=== PATIENT | male | born 1945 | race Caucasian/White ===

== ENCOUNTER 2020-09-13 11:09 | Outpatient (RCR) | payer MEDICARE, SELFPAY ==
[2020-09-13] MEDS: COVID-19 VACC, MRNA(PFIZER)/PF 30 MCG/0.3 ML SYRINGE IM (11:07)
[2020-10-04] MEDS: COVID-19 VACC, MRNA(PFIZER)/PF 30 MCG/0.3 ML SYRINGE IM (10:59)
== END 2020-12-13 23:59 ==
LOC: IMMUN 11:09
PROVIDERS: Visit Provider Family Medicine
DX: Z23 Encounter for immunization (principal)
CPT/HCPCS: 0001A; 0002A; 91300

== ENCOUNTER 2021-04-10 13:59 | Emergency (ER) | payer OTHER, MEDICARE, SELFPAY ==
[2021-04-10 13:59] VITALS: BP 151/94; PULSE 82; RESP 19; TEMP 37; O2SAT 98; BMI 27.3
--- NOTE | 2021-04-10 14:18 | EKG12_ITS ---
Test Reason : CP Blood Pressure : / mmHG Vent. Rate : 082 BPM Atrial Rate : 082 BPM P-R Int : 116 ms QRS Dur : 106 ms QT Int : 394 ms P-R-T Axes : 046 -17 012 degrees QTc Int : 460 ms Normal sinus rhythm with sinus arrhythmia Inferior infarct , age undetermined , cannot be excluded Abnormal ECG Confirmed by YEYO SALAS, NADIA ([id number]), technical writer and editor CHRISTINE WREN ([id number]) on 04/11/2021 8:36:36 AM Referred By: LIONEL Confirmed By:NADIA ORONA MD
--- NOTE | 2021-04-10 14:30 | RAD_ITS ---
STUDY: X-RAY CHEST REASON FOR EXAM: Male, 75 years old. CP TECHNIQUE: AP COMPARISON: None. FINDINGS: The lungs are clear and expanded. There is no demonstrated pleural abnormality. Normal size heart. Normal mediastinum and tristan. Normal visualized pulmonary arteries. Normal visualized aortic arch and descending thoracic aorta. Normal visualized thoracic spine. Normal visualized ribs, clavicles, and shoulders. There is no demonstrated abnormality of the visualized soft tissue structures of the upper abdomen. RAD/Chest 1 View IMPRESSION: Nonacute portable x-ray examination of the chest. Electronically Signed: Adrian Jain MD ([place]) at 14:48 EDT , Service support ,
[2021-04-10 16:33] VITALS: BP 166/97; PULSE 85; RESP 17
[2021-04-10 16:43] LABS: Absolute Lymphocyte Count 2.25 X10^3/uL (0.83-4.51); Absolute Neutrophil Count 4.7 X10^3/uL (2.0-7.7); Basophil# 0.03 X10^3/uL; Basophil% 0.4 % (0-1); Eosinophil# 0.16 X10^3/uL; Eosinophils% 2.1 % (0-5); Hematocrit 45.4 % (40-54); Hemoglobin 15.1 g/dL (13.0-16.5); Lymphocyte # 2.25 X10^3/ul (0.83-4.51); Mean Corp Hgb Conc 33.3 g/dL (32-36); Mean Corpuscular Hgb 29.3 pg (27.0-32.0); Mean Corpuscular Volume 88.2 fL (80-94); Mean Platelet Vol. 11.6 fl (6.2-12.0); Monocyte# 0.61 X10^3/uL; Monocyte% 7.9 % (0-10); NRBC Flagged by Analyzer 0 % (0-5); Neutrophil % 60.3 % (47-70); Platelet Count 248 K/mm3 (150-450); RBC Distribution Width SD 45.1 fl (35.1-43.9); Red Blood Count 5.15 M/mm3 (4.6-6.2); White Blood Count 7.8 K/mm3 (4.4-11.0)
[2021-04-10 16:56] LABS: Anion Gap 7 (5-15); BUN 18 mg/dL (7-18); BUN/Creat Ratio 19.6 RATIO (10-20); Calcium,Total 9.1 mg/dL (8.5-10.1); Chloride 111 mmol/L (98-107); Creatinine, Serum 0.92 mg/dL (0.70-1.30); EST Glomerular Filtration Rate 86 mL/min (>60); Est Glom Filt Rate - Afr Amer 103 mL/min (>60); Estimated Creatinine Clearance 65.86 ml/min; Glucose 90 mg/dL (74-106); Potassium 3.9 mmol/L (3.5-5.1); Sodium Level 142 mmol/L (136-145); Troponin-I HS 9 pg/mL (3.0-78.0)
[2021-04-10 17:06] VITALS: BP 147/89; PULSE 86; RESP 14
[2021-04-10 18:32] VITALS: BP 136/82; PULSE 92; RESP 15; O2SAT 97
[2021-04-10 18:49] LABS: Troponin-I HS 10 pg/mL (3.0-78.0)
[2021-04-10 19:00] VITALS: BP 149/104; PULSE 85; RESP 16; O2SAT 97
--- NOTE | 2021-04-10 19:14 | ED.VIS.CHEST ---
HPI History of Present Illness Chief Complaint: Chest Pain Informant: patient Narrative Narrative: Presenting with transient chest pain while attending dentist office with his . States standing noted substernal sharp pain lasting 30 seconds. Was lightheaded. No syncopal episodes. EMS was contacted at the facility, he is status post aspirin at the office. Denies any cardiac history. History of hypertension. Stress test years ago. No history of heart caths. No PE risk factors. [facility] Similar Symptoms: No CVD Risk Factors: Positive for Hypertension PFSH PFSH Medical History COPD (chronic obstructive pulmonary disease) Former smoker Home Medications amlodipine [Norvasc] 5 mg PO DAILY 04/10/21 [History Last Taken Unknown] Allergy/AdvReac Type Severity Reaction Status Date / Time erythromycin base Allergy Other Verified 04/10/21 14:02 Social History Smoking Status: Former smoker ROS ROS ED Constitutional Constitutional ED: Denies chills, fever(s) or sweats Eyes Eyes: Denies change in vision ENT ENT ED: Denies dysphagia or sore throat Cardiovascular Cardiovascular: Reports chest pain; Denies leg edema, palpitations or racing heartbeat Respiratory/Chest Respiratory/Chest: Denies cough, dyspnea or dyspnea on exertion Gastrointestinal Gastrointestinal: Denies abdominal pain, diarrhea, nausea or vomiting Genitourinary Genitourinary ED: Denies dysuria, hematuria or urinary frequency Musculoskeletal Musculoskeletal: Denies back pain, extremity pain or neck pain Integumentary Denies rash or wounds Neurologic Neurologic: Denies headache(s), paresthesias or weakness EXAM Physical Exam Const Vital Signs: 04/10/21 13:59 04/10/21 16:33 04/10/21 17:06 Temperature 98.6 F Temperature Source Temporal Pulse Rate 82 85 86 Respiratory Rate 19 H 17 14 Blood Pressure 151/94 H 166/97 H 147/89 H Blood Pressure Mean 113 120 108 Pulse Ox 98 Oxygen Delivery Method Room Air 04/10/21 18:32 04/10/21 19:00 04/10/21 19:25 Temperature Temperature Source Pulse Rate 92 85 85 Respiratory Rate 15 16 16 Blood Pressure 136/82 H 149/104 H 149/90 H Blood Pressure Mean 100 119 Pulse Ox 97 97 97 Oxygen Delivery Method Room Air Room Air Positive well nourished and well developed General Appearance ED: well developed and NAD HEENT Reports moist mucous membranes normocephalic and atraumatic Eyes PERRL, EOMs intact bilaterally and conjunctivae normal General Eye ED: Yes normal appearance of both eyes Neck no lymphadenopathy and supple General: Negative for tenderness Chest Wall Chest: Negative for tenderness Resp normal respiratory effort and normal air movement Effort and Inspection: symmetric chest movement; Negative for respiratory distress Cardio regular rate, regular rhythm and no murmurs Peripheral Pulses: pulses 2+ throughout GI normal to inspection, nondistended, normoactive bowel sounds and non-tender Palpation: Negative for guarding or rebound tenderness present Back/Spine no CVA tenderness and no thoracic nor lumbar tenderness Extremity normal to inspection General Extremety ED: Negative for edema or tenderness General Extremity: Negative for edema Neuro oriented x3 and no sensory deficits noted Sensorium / Orientation: awake and alert Skin no rashes or lesions noted and no wounds Heart Score History: Slightly/Non-Suspicious ECG: Normal Age: >/= 65 years Risk Factors: 1 or 2 Risk Factors Troponin: </= Normal Limit Score: 3 MDM MDM MDM Narrative Medical decision making narrative: Patient currently symptom-free EKG nonspecific T wave inversion in leads III. Cardiac work-up high since her troponin negative x2. Chest x-ray negative. Patient ambulated in department with no return of symptoms. He will follow-up for further testing as an outpatient. Return precautions discussed. All questions were answered. Lab Data Attestation: I reviewed the patient's lab results. Labs: Laboratory Results - last 24 hr 04/10/21 04/10/21 04/10/21 16:30 16:30 18:24 WBC 7.8 RBC 5.15 Hgb 15.1 Hct 45.4 MCV 88.2 MCH 29.3 MCHC 33.3 RDW Std Deviation 45.1 H RDW Coeff of Ishmael 14.0 Plt Count 248 MPV 11.6 Immature Gran % (Auto) 0.300 Neut % (Auto) 60.3 Lymph % (Auto) 29.0 [place] % (Auto) 7.9 Eos % (Auto) 2.1 Baso % (Auto) 0.4 Absolute Neuts (auto) 4.7 Absolute Lymphs (auto) 2.25 Nucleated RBC % 0 Sodium 142 Potassium 3.9 Chloride 111 H Carbon Dioxide 24.0 Anion Gap 7 BUN 18 Creatinine 0.92 Estim Creat Clear Calc 65.86 Est GFR (MDRD) Af Amer 103 Est GFR (MDRD) Non-Af 86 BUN/Creatinine Ratio 19.6 Glucose 90 Calcium 9.1 Troponin I High Sens 9 10 Radiography Chest X-Ray - ED: 1 View, Read by ED Physician and Read by Radiologist Diagnostic Testing: Radiology Impression Chest X-Ray 04/10/21 14:30 IMPRESSION: Nonacute portable x-ray examination of the chest. Electronically Signed: Adrian Jain MD ([place]) at 14:48 EDT , Service support , Discharge Plan Triage Chief Complaint: Chest Pain ED Provider: Blaine López Dx/Rx/DC Orders Clinical Impression: Chest pain Instructions: ED Chest Pain, Uncertain Cause Prescriptions: No Action amlodipine [Norvasc] 5 mg Tablet 5 mg PO DAILY RF: 0 [facility] [facility] - 3-5 Days Disposition Disposition: Home, Self Care Discharge Date/Time: 04/10/21 19:25
[2021-04-10 19:25] VITALS: BP 149/90; PULSE 85; RESP 16; O2SAT 97
== END 2021-04-10 19:25 | disposition home or self-care (01) ==
PROVIDERS: Emergency Provider Emergency Medicine
DX: R07.9 Chest pain, unspecified (principal); R42 Dizziness and giddiness; I10 Essential (primary) hypertension; J44.9 Chronic obstructive pulmonary disease, unspecified; Z87.891 Personal history of nicotine dependence
CPT/HCPCS: 71045; 80048; 84484; 85025; 93005; 99285; A4216

== ENCOUNTER → 2021-12-11 | Outpatient (CLI) | payer MEDICARE, SELFPAY ==
[2021-12-11 11:16] LABS: Hematocrit 44.1 % (40-54); Hemoglobin 14.8 g/dL (13.0-16.5); Mean Corp Hgb Conc 33.6 g/dL (32-36); Mean Corpuscular Hgb 28.6 pg (27.0-32.0); Mean Corpuscular Volume 85.1 fL (80-94); Mean Platelet Vol. 12.1 fl (6.2-12.0); Platelet Count 192 K/mm3 (150-450); RBC Distribution Width CV 13.4 % (11.6-14.6); RBC Distribution Width SD 41.8 fl (35.1-43.9); Red Blood Count 5.18 M/mm3 (4.6-6.2); White Blood Count 6.6 K/mm3 (4.4-11.0)
[2021-12-11 11:44] LABS: Hemoglobin A1c 5.5 % (3.8-5.6)
[2021-12-11 11:45] LABS: Vitamin B12 303 pg/mL (211-911); Vitamin D,25 Hydroxy 58.4 ng/mL
[2021-12-11 11:56] LABS: Homocysteine 10.1 umol/L (3.2-10.7)
[2021-12-11 13:07] LABS: ALB/GLOB Ratio 1.2 RATIO (0.9-2.4); AST(SGOT) 17 U/L (15-37); Alanine Aminotransfer ALT/SGPT 25 U/L (16-61); Albumin, Serum 4.1 g/dL (3.2-5.0); Alkaline Phosphatase 63 U/L (45-117); Anion Gap 5 (5-15); BUN 17 mg/dL (7-18); BUN/Creat Ratio 17.7 RATIO (10-20); Calcium,Total 9.2 mg/dL (8.5-10.1); Chloride 111 mmol/L (98-107); Cholesterol 241 mg/dL (200); Creatinine, Serum 0.96 mg/dL (0.70-1.30); EST Glomerular Filtration Rate 81 mL/min (>60); Est Glom Filt Rate - Afr Amer 98 mL/min (>60); Estradiol 16.9 pg/mL; Free T3 3.1 pg/mL (2.18-3.98); Globulin 3.4 g/dL (2.2-4.2); Glucose 96 mg/dL (74-106); High Density Lipoprotein 49 mg/dL; PSA,Total - Annual Screen 5.06 ng/mL (0.00-4.00); Potassium 3.7 mmol/L (3.5-5.1); Protein, Total 7.5 g/dL (6.4-8.2); Sodium Level 140 mmol/L (136-145); T4 Total, Thyroxin 11.2 ug/dL (4.5-12.1); Triglycerides 111 mg/dL; Very Low Density Lipoprotein 22 mg/dL (5-40)
[2021-12-14 11:08] LABS: Testosterone, % Free 2.76 % (1.50-4.20); Testosterone, Free 11.37 ng/dL (5.00-21.00)
[2021-12-14 12:26] LABS: DHEA Sulfate 50.5 ug/dL (20.8-226.4); Testosterone, Total 412 ng/dL (264-916)
== END | disposition home or self-care (01) ==
PROVIDERS: PCP Internal Medicine
DX: E55.9 Vitamin D deficiency, unspecified (principal); H35.3212 Exudative age-related macular degeneration, right eye, with inactive choroidal neovascularization; E72.11 Homocystinuria; D51.9 Vitamin B12 deficiency anemia, unspecified; H35.3111 Nonexudative age-related macular degeneration, right eye, early dry stage; H04.123 Dry eye syndrome of bilateral lacrimal glands; N40.0 Benign prostatic hyperplasia without lower urinary tract symptoms; R53.83 Other fatigue; M75.50 Bursitis of unspecified shoulder; R63.5 Abnormal weight gain; Z13.29 Encounter for screening for other suspected endocrine disorder; Z12.5 Encounter for screening for malignant neoplasm of prostate
CPT/HCPCS: 36415; 80053; 80061; 82306; 82607; 82627; 82670; 83036; 83090; 84153; 84402; 84403; 84436; 84443; 84481; 85027; 86141; 82626; G0103

== ENCOUNTER → 2022-03-14 | Outpatient (CLI) | payer MEDICARE, SELFPAY ==
--- NOTE | 2022-03-14 10:38 | RAD_ITS ---
STUDY: X-RAY - CERVICAL SPINE REASON FOR EXAM: Male, 76 years old. PAIN TECHNIQUE: 5 view(s) of the cervical spine were obtained. COMPARISON: None FINDINGS: Normal anterior atlantoaxial articulation. Normal odontoid process. Normal cervical lordosis. Normal vertebral bodies and endplates. There is multi-level degenerative disc disease with multilevel disc space narrowing. There is multi-level osseous foraminal stenosis. The soft tissue structures are unremarkable. RAD/Cerv Spine 4 or 5 Views IMPRESSION: Multilevel degenerative changes, no acute fracture or suspicious osseous lesion Electronically Signed: Jose L Curtis MD at 13:32 EDT ,
--- NOTE | 2022-03-14 10:38 | RAD_ITS ---
STUDY: X-RAY - RIGHT KNEE REASON FOR EXAM: Male, 76 years old. Pain and stiffness TECHNIQUE: 4 view(s) of the knee. COMPARISON: None. FINDINGS: Normal visualized distal femur. Normal visualized proximal tibia and fibula. Normal proximal tibiofibular articulation. There is severe degenerative arthrosis of the medial femorotibial compartment with severe joint space narrowing. There is mild degenerative arthrosis of the lateral femorotibial compartment. There is moderate degenerative arthrosis of the patellofemoral articulation. No joint effusion, there are degenerative spurs and chondrocalcinosis. RAD/Knee 4 or More Views IMPRESSION: Degenerative arthrosis. Electronically Signed: Jose L Curtis MD at 13:30 EDT ,
--- NOTE | 2022-03-14 10:38 | RAD_ITS ---
STUDY: X-RAY - LUMBAR SPINE REASON FOR EXAM: Male, 76 years old. PAIN TECHNIQUE: 4 view(s) of the lumbar spine were obtained. COMPARISON: None FINDINGS: Normal lumbar lordosis. There is no substantial scoliosis. There is a normal alignment of the vertebrae. There is multilevel endplate spondylosis of the lumbar vertebrae. There is multi-level degenerative disc disease with multi-level disc space narrowing, most pronounced at L5/S1. There is no demonstrated fracture. There is atherosclerotic calcification of the abdominal aorta without a demonstrated aneurysm. RAD/L/S Spine Min 4 Views IMPRESSION: Degenerative changes of the spine, as detailed above. Electronically Signed: Jose L Curtis MD at 13:31 EDT ,
== END | disposition home or self-care (01) ==
LOC: RAD 10:31
PROVIDERS: PCP Internal Medicine
DX: M17.11 Unilateral primary osteoarthritis, right knee (principal); M51.36 Other intervertebral disc degeneration, lumbar region; M47.816 Spondylosis without myelopathy or radiculopathy, lumbar region; M47.812 Spondylosis without myelopathy or radiculopathy, cervical region; M50.30 Other cervical disc degeneration, unspecified cervical region
CPT/HCPCS: 72050; 72110; 73564; 73565

== ENCOUNTER 2022-04-03 08:16 | Day surgery (SDC) | payer OTHER, SELFPAY ==
--- NOTE | 2022-04-03 08:22 | HP.PCM_ITS ---
History and Physical Date of Admission: 04/03/22 Intake Visit Reasons:?COLONOSCOPY AND EGD FOR BLOATING AND REFLUX Chief Complaint: colonoscopy and EGD Em Physician Required: No Is patient in pain?: No Allergies erythromycin base Allergy (Verified 03/05/22 14:31) Other Medications amlodipine 5 mg tablet (Norvasc) 7.5 mg PO DAILY 10/31/21 [History Confirmed 03/05/22] benzonatate 100 mg capsule 100 mg PO BID PRN 10/31/21 [History Confirmed 03/05/22] budesonide-formoterol HFA 160 mcg-4.5 mcg/actuation aerosol inhaler (Symbicort) 2 puff inhalation BID 10/31/21 [History Confirmed 03/05/22] cholecalciferol (vitamin D3) 50 mcg (2,000 unit) capsule 50 mcg PO DAILY 10/31/21 [History Confirmed 03/05/22] ipratropium 20 mcg-albuterol 100 mcg/actuation mist for inhalation (Combivent Respimat) 1 puff inhalation Q6H 10/31/21 [History Confirmed 03/05/22] loratadine 10 mg tablet 10 mg PO DAILY 10/31/21 [History Confirmed 03/05/22] magnesium 200 mg tablet 400 mg PO DAILY 10/31/21 [History Confirmed 03/05/22] omega-3 fatty acids-fish oil 340 mg-1,000 mg capsule (Fish Oil) 1 cap PO DAILY 10/31/21 [History Confirmed 03/05/22] omeprazole 20 mg capsule,delayed release 20 mg PO BID 10/31/21 [History Confirmed 03/05/22] tamsulosin 0.4 mg capsule 0.4 mg PO DAILY 10/31/21 [History Confirmed 03/05/22] vit A 12,500 unit-zinc 12.5 hr-qvfhoj-hbcpi-bilberry-herb #261 capsule (Lipot[employer] Support) cap PO 10/31/21 [History Confirmed 03/05/22] Carpal Tunnel Splint #1 ea 01/31/22 [Rx Confirmed 03/05/22] PFSH Medical History?(Updated 03/05/22 @ 15:[address] Lavon Edmonds MD) COPD (chronic obstructive pulmonary disease) Former smoker Kidney stones Vision problem Surgical History?(Updated 03/05/22 @ 14:29 by Shona Rosado) S/P hernia repair Status post right knee replacement Family History? Grandfather CVA (cerebral vascular accident)Father CVA (cerebral vascular accident)Mother AnemiaOther Heart disease Social History? Smoking Status:? Former smoker HPI HPI HPI: CARYL CURIEL, is a 76 M who presents to the office today for surgical consultation regarding abdominal discomfort and bloating.? The patient is referred by the [place] [facility] for consideration of a combined upper and lower endoscopy and a written copy my surgical consult recommendations will retu rn to them.? He has not had any anemia identified and his renal function is normal. The patient is complaining of bloating epigastric pain.? He provides a history where 12 years ago he says in short succession he had 3 colonoscopies.? He claims at the initial visit he had several polyps identified and then in short order had a repeat scope with further polyps removed and then finally a third scope were no additional polyps were identified.? He was scheduled to return several years later and took the bowel prep had nausea and vomiting and had to cancel the colonoscopy and never rescheduled at that time.? His just had a colonoscopy done locally using a single day MiraLAX prep and had good results with no nausea or vomiting.? This is provided the patient with some encourage that he could take the same prep for his colonoscopy. The patient does have COPD related to cigarette use but he has not smoked cigarettes for 25 years.? He is post to use a couple inhalers and does have more on a as needed basis. He notes some left groin discomfort.? He has had a previous left inguinal herniorrhaphy.? He does not notice a mass or bulge. 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 He has not had any unexpected weight loss.? No bright red blood per rectum or melena ROS General General: Yes weight change and fatigue; No appetite, colon cancer, breast cancer or weakness HEENT HEENT: No difficulty swallowing, eye injury, eye surgery, swollen glands or hoarseness Endo Endocrine: No thyroid disease, diabetes mellitus, thyroid cancer, Hair loss, heat intolerance or cold intolerance Skin Skin: No rash or changing moles Breast Breast: No left breast lump, right breast lump, nipple discharge, breast pain, abnormal mammogram, abnormal US or breast enlargement Musc Musculoskeletal: Yes back problems and arthritis; No rheumatoid arthritis, gout or joint pain Cardio Cardiovascular: Yes high blood pressure; No murmur, pacemaker, heart disease, atrial fibrillation, heart attack, heart stent, palpitations, shortness of breat with exertion or chest pain Psych Psychiatric: Yes depression and anxiety; No hearing voices Resp Respiratory: Yes shortness of breath, No sleep apnea, No cough, Yes COPD, No asthma, No emphysema and No wheezing Gastro Gastrointestinal: Yes abdominal pain, No nausea or vomiting, Yes diarrhea, No constipation, No blood in stool, Yes acid reflux, No hemorrhoids, No ulcers, No gallbladder problem and No black,tarry stools Ravin Hematologic: No blood thinners, No blood disorders, No bleeding, No anemia and No blood clots Neuro Neurologic: No system reviewed and no additional complaints, except as documented, No as per HPI, No abnormal gait, No abnormal hearing, No abnormal movements, No abnormal speech, No behavioral changes, No burning sensations, No confusion, No convulsions, No disequilibrium, No dizziness, No localized weakness, No frequent falls, No headache(s), No lack of coordination, No loss of vision, No memory loss, No numbness, No other visual disturbances, No radicular pain, No restless legs, No sensory deficit, No syncope, No tingling, No tremor(s), No weakness and No other Exam Const General: cooperative and no acute distress Nutritional Appearance: average body habitus [facility] Head: normal to inspection Neck Neck: normal visual inspection Chest Other: Increased anterior posterior diameter Resp Other: Slightly diminished respiratory excursion.? Clear bilaterally Cardio Other: Mildly tachycardic, GI Inspection: normal to inspection Palpation: soft and no hepatosplenomegaly Other: Well-healed oblique incision left groin, solid and intact Neuro General: patient alert, patient awake and patient oriented x3 Extrem General: no calf tenderness Psych Appearance: grossly normal Assessment and Plan Assessment and Plan (1) Epigastric abdominal pain: ?Status:?Acute (2) Personal history of colonic polyps: ?Status:?Acute Plan I recommended the patient a combined esophagogastroduodenoscopy with possible biopsy and colonoscopy with possible biopsy or polypectomy as indicated.? He is aware of the technique, benefit, risk, alternatives.? We will try to use the same bowel prep which was successful for his which was a 1 day MiraLAX prep.? Based upon the patient's history I am anticipating likely identification of recurrent colon polyps.? We would utilize monitored anesthesia care.? He has had an opportunity to ask and have questions answered.? We will schedule proc edure at his discretion. Copy: [facility] Lavon Edmonds M.D., F.A.C.S I have re-examined the patient. There are no clinical changes since date of exam. Lavon Edmonds M.D., F.A.C.S.
[2022-04-03] MEDS: Lactated Ringers 1,000 ML 15 ML IV (08:30)
[2022-04-03 08:45] VITALS: BP 144/87; PULSE 105; RESP 16; TEMP 37.1; O2SAT 95; BMI 27.2
--- NOTE | 2022-04-03 09:45 | IMM_PTH ---
PATIENT: CARYL CURIEL LOC: [facility] U#:[id number] AGE/SX: 76/M ROOM: RE04/03/[address]: Dr. Lavon Edmonds MD : 1945 BED: DIS: 04/03/2022 SPEC #: [id number] RECD: 04/03/22 13:34 STATUS: JOAQUIN REQ #: [id number] INESSA: 04/03/22 09:[address]: Lavon Edmonds DEPT: IMMUNOHISTOCHEMISTRY RECD BY: Candice Butt ENTERED: 04/03/22 13:35 SP TYPE: IMMUNO OTHR DR: Dr. Kaur Suh MD [facility] Tissues: A - Stomach, NOS Procedures: H Pylori (initial) PHYSICIAN & INSTITUTION [place] [id number] SPECIMEN INFORMATION: Tissue Source: A ? Antrum biopsy Clinical Info: Epigastric abdominal pain, history of colonic polyps Specimen Number: [id number] CPT code: 93714 METHODOLOGY: Deparaffinized sections of prefer/formalin-fixed tissue or PAP/DQ stained slides are incubated with monoclonal/polyclonal antibodies/oligonucleotide probes. Localization is made via biotin free immunoperoxidase method. Appropriate controls are performed and reacted as expected. Results on target cell population are indicated in the following table: RESULTS: ANTIBODY / CLONE RESULT Block A H Pylori (polyclonal) negative These tests were developed and their performance characteristics determined by [facility]. They may not have been cleared or approved by the U.S. Food and Drug Administration. The FDA has determined that such clearance or approval is not necessary. The above immunohistochemical/dualISH markers are ordered and reviewed by the Pathologist. INTERPRETATION: A. Antrum, biopsy: Negative for Helicobacter pylori organisms. AM:diaz 04/04/2022
--- NOTE | 2022-04-03 09:45 | EGD_PTH ---
PATIENT: CARYL CURIEL LOC: [facility] U#:[id number] AGE/SX: 76/M ROOM: RE04/03/[address]: Dr. Lavon Edmonds MD : 1945 BED: DIS: 04/03/2022 SPEC #: [id number] RECD: 04/03/22 11:50 STATUS: JOAQUIN ALVARADO #: [id number] INESSA: 04/03/22 09:[address]: Lavon Edmonds DEPT: SURGICAL PATHOLOGY RECD BY: Evi Kwan ENTERED: 04/03/22 12:38 SP TYPE: EGD BIOPSY OT DR: Dr. Kaur Suh MD [facility] Tissues: A - Gastric mucous membrane B - Gastric fundus C - Esophagus, NOS D - Esophagus, NOS E - Descending colon Procedures: Special Stain Group II Surgery Specimen Level IV Alcian Blue/PAS (control) HEADER OPERATION: [place] [place] PRE[place] DIAGNOSIS: Epigastric abdominal pain, history of colonic polyps TISSUE SUBMITTED: A - Antrum biopsy, B - Fundic polyp, C - Distal esophagus biopsy, D - Mid esophagus biopsy, E - Descending colon polyp MICROSCOPIC DIAGNOSIS A. Gastric antrum, biopsy: Minimal chronic inflammation. See comment. B. Gastric fundus, biopsy: Fundic gland polyp. C. Distal esophagus, biopsy: Gastroesophageal junctional mucosa with mild chronic inflammation. Focal changes of reflux. No evidence of goblet cell metaplasia. See comment. D. Mid esophagus, biopsy: Fragments of benign squamous mucosa. E. Descending colon polyp, biopsy: Tubular adenoma. AM:diaz 04/04/2022 COMMENT A. The results of immunohistochemistry for Helicobacter pylori will be reported separately ([id number]). C. Alcian blue/PAS stain with matched control supports the above diagnosis. MICROSCOPIC DESCRIPTION Slides are reviewed. GROSS DESCRIPTION A - Received in fixative is one container labeled with the patient's name and designated antrum biopsy. The specimen consists of one irregular fragment of light alejandre soft tissue that measures 0.4 x 0.4 x 0.1 cm. The specimen is totally submitted in one cassette. B - Received in fixative is one container labeled with the patient's name and designated fundic polyp. The specimen consists of two irregular fragments of light alejandre soft tissue that in aggregate measure 0.6 x 0.3 x 0.1 cm. The specimen is totally submitted in one cassette. C - Received in fixative is one container labeled with the patient's name and designated distal esophagus biopsy. The specimen consists of one irregular fragment of light alejandre soft tissue that measures 0.5 x 0.4 x 0.1 cm. The specimen is totally submitted in one cassette. D - Received in fixative is one container labeled with the patient's name and designated mid esophagus biopsy. The specimen consists of one irregular fragment of light alejandre soft tissue that measures 0.4 x 0.4 x 0.1 cm. The specimen is totally submitted in one cassette. E - Received in fixative is one container labeled with the patient's name and designated descending colon polyp. The specimen consists of one irregular fragment of light alejandre soft tissue that measures 0.3 x 0.2 x 0.1 cm. The specimen is totally submitted in one cassette. / SJ:rg 04/03/2022 TC:3 CPT: 14274 x5, 67440
[2022-04-03 11:00] VITALS: BP 144/87; BP 99/54; PULSE 103; RESP 18; TEMP 38.3; O2SAT 85
--- NOTE | 2022-04-03 11:00 | OP.EGD_ITS ---
Patient Name: Juliocesar Collado Procedure Date: 04/03/2022 10:23 AM Date of : 1945 Age: 76 Procedure: Upper GI endoscopy Indications: Epigastric abdominal pain Providers: Lavon Edmonds MD Medicines: See the Anesthesia note for documentation of the administered medications Complications: No immediate complications. Procedure: Pre-Anesthesia Assessment: - Prior to the procedure, a History and Physical was performed, and patient medications and allergies were reviewed. The patient's tolerance of previous anesthesia was also reviewed. The risks and benefits of the procedure and the sedation options and risks were discussed with the patient. All questions were answered, and informed consent was obtained. Prior Anticoagulants: The patient has taken no previous anticoagulant or antiplatelet agents. ASA Grade Assessment: II - A patient with mild systemic disease. After reviewing the risks and benefits, the patient was deemed in satisfactory condition to undergo the procedure. After obtaining informed consent, the endoscope was passed under direct vision. Throughout the procedure, the patient's blood pressure, pulse, and oxygen saturations were monitored continuously. The pediatric colonoscope was introduced through the mouth, and advanced to the second part of duodenum. The upper GI endoscopy was accomplished without difficulty. The patient tolerated the procedure well. Scope In: 10:32:39 AM Scope Out: 10:38:14 AM Total Procedure Duration Time 0 hours 5 minutes 35 seconds Findings: The Z-line was regular and was found 38 cm from the incisors. The middle third of the esophagus was normal. Biopsies were taken with a cold forceps for histology. The distal esophagus was normal. Biopsies were taken with a cold forceps for histology. A small hiatal hernia was present. Localized mild inflammation characterized by erosions was found in the gastric antrum. Biopsies were taken with a cold forceps for histology. A few sessile polyps with no stigmata of recent bleeding were found in the gastric fundus. The polyp was removed with a cold biopsy forceps. Resection and retrieval were complete. The examined duodenum was normal. Impression: - Z-line regular, 38 cm from the incisors. - Normal middle third of esophagus. Biopsied. - Normal distal esophagus. Biopsied. - Small hiatal hernia. - Chronic gastritis. Biopsied. - A few gastric polyps. Resected and retrieved. - Normal examined duodenum. Findings do not seem to correlate with significant pathology other than gastritis. Will notify pt. of biopsy results. Recommendation: - Telephone my office for pathology results in 1 week. - Continue present medications. Procedure Code(s): --- Professional --- 52209, Esophagogastroduodenoscopy, flexible, transoral; with biopsy, single or multiple Diagnosis Code(s): --- Professional --- K44.9, Diaphragmatic hernia without obstruction or gangrene K29.50, Unspecified chronic gastritis without bleeding K31.7, Polyp of stomach and duodenum R10.13, Epigastric pain CPT copyright 2017 [employer]. All rights reserved. The codes documented in this report are preliminary and upon director of personnel review may be revised to meet current compliance requirements. Lavon Edmonds MD 04/03/2022 11:00:12 AM This report has been signed electronically. Number of Addenda: 0 Note Initiated On: 04/03/2022 10:23 AM
--- NOTE | 2022-04-03 11:01 | OP.CCLET_ITS ---
04/03/2022 See above [facility] Re : Upper GI endoscopy procedure for Juliocesar Collado Dear [facility] This procedure was performed on Sunday, April 03, 2022. My impressions and recommendations are as follows: Impressions : - Z-line regular, 38 cm from the incisors. - Normal middle third of esophagus. Biopsied. - Normal distal esophagus. Biopsied. - Small hiatal hernia. - Chronic gastritis. Biopsied. - A few gastric polyps. Resected and retrieved. - Normal examined duodenum. Findings do not seem to correlate with significant pathology other than gastritis. Will notify pt. of biopsy results. Recommendations : - Telephone my office for pathology results in 1 week. - Continue present medications. My findings are described in the full procedure note, which is enclosed. If I can be of further assistance, please feel free to contact me at Doctor phone number(s): Work: . Sincerely, Lavon Edmonds MD 04/03/2022 11:00:12 AM This report has been signed electronically.
[2022-04-03 11:05] VITALS: BP 116/66; BP 144/87; PULSE 102; RESP 18; O2SAT 92
--- NOTE | 2022-04-03 11:06 | OP.COLON_ITS ---
Patient Name: Juliocesar Collado Procedure Date: 04/03/2022 10:38 AM Date of : 1945 Age: 76 Procedure: Colonoscopy Indications: Epigastric abdominal pain Providers: Lavon Edmonds MD Medicines: See the Anesthesia note for documentation of the administered medications Patient Profile: Last Colonoscopy: more than 10 years ago. Complications: No immediate complications. Procedure: Pre-Anesthesia Assessment: - Prior to the procedure, a History and Physical was performed, and patient medications and allergies were reviewed. The patient's tolerance of previous anesthesia was also reviewed. The risks and benefits of the procedure and the sedation options and risks were discussed with the patient. All questions were answered, and informed consent was obtained. Prior Anticoagulants: The patient has taken no previous anticoagulant or antiplatelet agents. ASA Grade Assessment: II - A patient with mild systemic disease. After reviewing the risks and benefits, the patient was deemed in satisfactory condition to undergo the procedure. After I obtained informed consent, the scope was passed under direct vision. Throughout the procedure, the patient's blood pressure, pulse, and oxygen saturations were monitored continuously. The pediatric colonoscope was introduced through the anus and advanced to the cecum, identified by appendiceal orifice and ileocecal valve. The colonoscopy was performed without difficulty. The patient tolerated the procedure well. The quality of the bowel preparation was good. The ileocecal valve and the appendiceal orifice were photographed. Scope In: 10:39:55 AM Scope Withdrawal Time 0 hours 8 minutes 44 seconds Scope Out: 10:53:00 AM Total Procedure Duration Time 0 hours 13 minutes 5 seconds Findings: The digital rectal exam findings include non-thrombosed external hemorrhoids, non-thrombosed internal hemorrhoids, internal hemorrhoids that prolapse with straining, but spontaneously regress to the resting position (Grade II) and enlarged prostate. A 5 mm polyp was found in the descending colon. The polyp was sessile. The polyp was removed with a hot snare. Resection and retrieval were complete. Multiple diverticula were found in the sigmoid colon. The exam was otherwise without abnormality. Impression: - Non-thrombosed external hemorrhoids, non-thrombosed internal hemorrhoids, internal hemorrhoids that prolapse with straining, but spontaneously regress to the resting position (Grade II) and enlarged prostate found on digital rectal exam. - One 5 mm polyp in the descending colon, removed with a hot snare. Resected and retrieved. - Diverticulosis in the sigmoid colon. - The examination was otherwise normal. Recommendation: - Discharge patient to home. - Resume previous diet. - Continue present medications. - Repeat colonoscopy in 5 years for surveillance. - Telephone my office for pathology results in 1 week. Procedure Code(s): --- Professional --- 06956, Colonoscopy, flexible; with removal of tumor(s), polyp(s), or other lesion(s) by snare technique Diagnosis Code(s): --- Professional --- D12.4, Benign neoplasm of descending colon K64.1, Second degree hemorrhoids K64.4, Residual hemorrhoidal skin tags R10.13, Epigastric pain N40.0, Benign prostatic hyperplasia without lower urinary tract symptoms K57.30, Diverticulosis of large intestine without perforation or abscess without bleeding CPT copyright 2017 [employer]. All rights reserved. The codes documented in this report are preliminary and upon merchandise flow team leader review may be revised to meet current compliance requirements. Lavon Edmonds MD 04/03/2022 11:05:29 AM This report has been signed electronically. Number of Addenda: 0 Note Initiated On: 04/03/2022 10:38 AM
--- NOTE | 2022-04-03 11:07 | OP.CCLET_ITS ---
04/03/2022 See above [facility] Re : Colonoscopy procedure for Juliocesar Collado Dear [facility] This procedure was performed on Sunday, April 03, 2022. My impressions and recommendations are as follows: Impressions : - Non-thrombosed external hemorrhoids, non-thrombosed internal hemorrhoids, internal hemorrhoids that prolapse with straining, but spontaneously regress to the resting position (Grade II) and enlarged prostate found on digital rectal exam. - One 5 mm polyp in the descending colon, removed with a hot snare. Resected and retrieved. - Diverticulosis in the sigmoid colon. - The examination was otherwise normal. Recommendations : - Discharge patient to home. - Resume previous diet. - Continue present medications. - Repeat colonoscopy in 5 years for surveillance. - Telephone my office for pathology results in 1 week. My findings are described in the full procedure note, which is enclosed. If I can be of further assistance, please feel free to contact me at Doctor phone number(s): Work: . Sincerely, Lavon Edmonds MD 04/03/2022 11:05:29 AM This report has been signed electronically.
[2022-04-03 11:10] VITALS: BP 119/76; BP 144/87; PULSE 104; RESP 18; O2SAT 93
[2022-04-03 11:15] VITALS: BP 112/73; BP 144/87; PULSE 103; RESP 18; TEMP 37.4; O2SAT 94
[2022-04-03 11:32] VITALS: BP 144/87
== END 2022-04-03 11:52 | disposition home or self-care (01) ==
LOC: EN 08:18 → AC 08:20
PROVIDERS: PCP Internal Medicine; Referring Provider Internal Medicine; Visit Provider Surgery
PROC: 0DJD8ZZ Inspection of Lower Intestinal Tract, Via Natural or Artificial Opening Endoscopic (ICD-10-PCS; CPT 45378; principal; 2022-04-03 09:40)
DX: D12.4 Benign neoplasm of descending colon (principal); J44.9 Chronic obstructive pulmonary disease, unspecified; K64.8 Other hemorrhoids; Z87.891 Personal history of nicotine dependence; K31.7 Polyp of stomach and duodenum; K44.9 Diaphragmatic hernia without obstruction or gangrene; N40.0 Benign prostatic hyperplasia without lower urinary tract symptoms; Z86.010 Personal history of colon polyps; K29.50 Unspecified chronic gastritis without bleeding; M19.012 Primary osteoarthritis, left shoulder; K57.30 Diverticulosis of large intestine without perforation or abscess without bleeding; M17.10 Unilateral primary osteoarthritis, unspecified knee; M19.011 Primary osteoarthritis, right shoulder; K64.4 Residual hemorrhoidal skin tags; K64.1 Second degree hemorrhoids; R10.13 Epigastric pain
CPT/HCPCS: 45385; 43239; 88305; 88313; 88342; J7120; J2405

== ENCOUNTER → 2022-05-01 | Outpatient (CLI) | payer OTHER, SELFPAY ==
--- NOTE | 2022-05-01 09:21 | US_ITS ---
STUDY: ABDOMINAL ULTRASOUND - RIGHT UPPER QUADRANT REASON FOR VISIT: Male, 76 years old . Right upper quadrant pain. TECHNIQUE: Ultrasound evaluation of the right upper quadrant was performed with real-time and static rodriges-scale imaging. TECHNICAL QUALITY: Adequate. COMPARISON: None. FINDINGS: Liver: The liver measures 13.8 cm. There is normal echogenicity of the liver. The bile ducts are within normal limits. There is hepatic color flow. The direction of portal flow is hepatopetal. There is no demonstrated mass lesion. Gallbladder: Normal distended gallbladder. The gallbladder wall measures 2.4 mm. There is a negative sonographic Patrick''s sign. There is no pericholecystic fluid. There are no gallstones. Common Bile Duct (C.B.D.): The common bile duct measures 4.1 mm. Pancreas: There is nonvisualization of the pancreas due to overlying bowel gas. Right Kidney: Normal size of the right kidney. The right kidney measures 11.7 cm x 5.3 cm x 7.2 cm. Normal renal cortex. The right cortex measures 2.0 cm. There is a 6.3 cm x 5.6 cm x 4.9 cm cyst. There is no right hydronephrosis. US/Gallbladder IMPRESSION: Right renal cyst. Electronically Signed: Edward Bowman MD at 14:08 EDT ,
== END | disposition home or self-care (01) ==
LOC: US 09:19
PROVIDERS: PCP Internal Medicine; Referring Provider Surgery; Visit Provider Surgery
DX: R10.9 Unspecified abdominal pain (principal)
CPT/HCPCS: 76705

== ENCOUNTER → 2023-03-25 | Outpatient (CLI) | payer MEDICARE, SELFPAY ==
[2023-03-25 12:57] LABS: Absolute Lymphocyte Count 2.31 X10^3/uL (0.83-4.51); Absolute Neutrophil Count 3.6 X10^3/uL (2.0-7.7); Basophil# 0.05 X10^3/uL; Basophil% 0.7 % (0-1); Eosinophil# 0.49 X10^3/uL; Eosinophils% 6.8 % (0-5); Hematocrit 44.9 % (40-54); Lymphocyte # 2.31 X10^3/ul (0.83-4.51); Lymphocyte % 32.1 % (19-41); Mean Corp Hgb Conc 33.4 g/dL (32-36); Mean Corpuscular Hgb 29.2 pg (27.0-32.0); Mean Corpuscular Volume 87.4 fL (80-94); Mean Platelet Vol. 11.7 fl (6.2-12.0); Monocyte# 0.75 X10^3/uL; Monocyte% 10.4 % (0-10); NRBC Flagged by Analyzer 0 % (0-5); Neutrophil # 3.58 X10^3/uL (2.7-7.7); Neutrophil % 49.9 % (47-70); Platelet Count 228 K/mm3 (150-450); RBC Distribution Width CV 13.5 % (11.6-14.6); RBC Distribution Width SD 43.3 fl (35.1-43.9); Red Blood Count 5.14 M/mm3 (4.6-6.2); White Blood Count 7.2 K/mm3 (4.4-11.0)
[2023-03-25 13:19] LABS: Vitamin D,25 Hydroxy 61.7 ng/mL
[2023-03-25 13:31] LABS: ALB/GLOB Ratio 0.9 RATIO (0.9-2.4); AST(SGOT) 16 U/L (15-37); Alanine Aminotransfer ALT/SGPT 23 U/L (16-61); Albumin, Serum 3.7 g/dL (3.2-5.0); Alkaline Phosphatase 78 U/L (45-117); Anion Gap 8 (5-15); BUN 17 mg/dL (7-18); Calcium,Total 9.1 mg/dL (8.5-10.1); Chloride 106 mmol/L (98-107); Cholesterol 248 mg/dL (200); EST Glomerular Filtration Rate 77 mL/min (>60); Est Glom Filt Rate - Afr Amer 93 mL/min (>60); Globulin 4.1 g/dL (2.2-4.2); Glucose 97 mg/dL (74-106); High Density Lipoprotein 48 mg/dL; PSA,Total - Annual Screen 7.43 ng/mL (0.00-4.00); Potassium 3.9 mmol/L (3.5-5.1); Protein, Total 7.8 g/dL (6.4-8.2); Sodium Level 138 mmol/L (136-145); Thyroid Stim Hormone (TSH) 0.62 uIU/mL (0.358-3.74); Triglycerides 164 mg/dL; Very Low Density Lipoprotein 33 mg/dL (5-40)
== END | disposition home or self-care (01) ==
LOC: LAB 12:26
PROVIDERS: PCP Internal Medicine; Referring Provider Internal Medicine; Visit Provider Internal Medicine
DX: Z12.5 Encounter for screening for malignant neoplasm of prostate (principal); E78.5 Hyperlipidemia, unspecified; I10 Essential (primary) hypertension; N40.1 Benign prostatic hyperplasia with lower urinary tract symptoms; Z13.220 Encounter for screening for lipoid disorders; E55.9 Vitamin D deficiency, unspecified
CPT/HCPCS: 36415; 80053; 80061; 82306; 84153; 84443; 85025; G0103

== ENCOUNTER 2024-01-28 13:04 | Emergency (ER) | payer OTHER, SELFPAY ==
[2024-01-28 13:06] VITALS: BP 125/86; PULSE 108; RESP 18; TEMP 37.1; O2SAT 95; BMI 26.6
--- NOTE | 2024-01-28 13:28 | VDLE_ITS ---
Reason For Study: LLE Pain RIGHT LEFT CFV is compressible, spontaneous, phasic, CFV is compressible, spontaneous, phasic, competent and demonstrates normal competent, and demonstrates normal augmentation. augmentation. Procedure FV is compressible, spontaneous, phasic, This is a venous duplex using B-mode, color competent and demonstrates normal flow and spectral Doppler. augmentation. Exam performed in department. POP V is compressible, spontaneous, phasic, The exam was diagnostic. competent and demonstrates normal A preliminary report was called and/or faxed augmentation. to Dr. Marroquin. Acute deep vein thrombosis is noted in the T/P Trunk. It is dilated and NONCOMPRESSIBLE. Acute deep vein thrombosis is noted in the PTV. It is dilated and NONCOMPRESSIBLE. Acute deep vein thrombosis is noted in the Per V. It is dilated and NONCOMPRESSIBLE. Lt GSV is dilated and NONCOMPRESSIBLE from ankle to knee. Dist thigh to SFJ is compressible. VL/Venous Duplex US, Unilateral Interpretation Summary Acute deep vein thrombosis is noted in the left tibio-peroneal trunk vein, post erior tibial vein, peroneal vein. Acute superficial vein thrombosis noted in the left great saphenous vein from a nkle to knee. Ordering Physician: Leobardo Marroquin Performed By: Víctor Neff, RVT
--- NOTE | 2024-01-28 13:29 | ED.VIS.LOWEX ---
HPI History of Present Illness Chief Complaint: Lower Extremity Injury Narrative Narrative: 78-year-old male past medical history of hypertension, arthritis of knee, COPD presents with pain and swelling of his left outer ankle and a small spot on his foot with redness that he noticed on the 17th, 6 days ago. He relates history that on the 16th, 7 days ago, he had intra-articular injections for chronic pain mainly in his left knee. The following day, he noticed pain and redness of the left ankle, then today, there is an area on his foot that is also reddened. It is mildly swollen and tender to the touch. He states that the pain spreads to his arch of his foot. He also has pain going up his left calf as well. He denies any chest pain or shortness of breath. No fevers or chills. [facility] Medical History Enlarged prostate Wears hearing aid Wears glasses Wears partial dentures Depression Anxiety High cholesterol Hx of migraine headaches Leg cramps Vision problem Kidney stones Former smoker COPD (chronic obstructive pulmonary disease) Home Medications ?Medication ?Instructions ?Recorded ?Last Taken ?Type benzonatate 100 mg capsule 100 mg PO BID PRN Cough 10/31/21 Unknown History budesonide-formoterol HFA 160 2 puff inhalation BID 10/31/21 Unknown History mcg-4.5 mcg/actuation aerosol inhaler (Symbicort) cholecalciferol (vitamin D3) 50 50 mcg PO DAILY 10/31/21 Unknown History mcg (2,000 unit) capsule ipratropium 20 mcg-albuterol 100 1 puff inhalation Q6H 10/31/21 Unknown History mcg/actuation mist for inhalation (Combivent Respimat) loratadine 10 mg tablet 10 mg PO DAILY 10/31/21 Unknown History tamsulosin 0.4 mg capsule 0.4 mg PO DAILY 10/31/21 Unknown History vit A 12,500 unit-zinc 12.5 cap PO 10/31/21 Unknown History zx-muajzg-txkej-bilberry-herb #261 capsule (Lipotriad Vision Support) Carpal Tunnel Splint #1 ea 01/31/22 Unknown Rx benzonatate 200 mg capsule 200 mg PO TID PRN cough #20 caps 03/05/23 Unknown Rx ProstaGenix 3 tab PO DAILY 03/25/23 Unknown History amlodipine 10 mg tablet 10 mg PO DAILY 03/25/23 Unknown History esomeprazole magnesium 20 mg 20 mg PO DAILY 03/25/23 Unknown History capsule,delayed release ibuprofen 200 mg tablet 200 mg PO Q6H PRN 03/25/23 Unknown History magnesium oxide 500 mg capsule 500 mg PO DAILY 03/25/23 Unknown History ubrogepant 50 mg tablet (Ubrelvy) 50 mg PO ONCE #10 tabs 01/22/24 Unknown Rx apixaban 5 mg (74 tabs) tablets in See Rx Instructions PO .COMPLEX 01/28/24 Unknown Rx a dose pack (Eliquis DVT-PE Treat #74 tabs 30D Start) oxycodone 5 mg tablet 5 mg PO Q6H PRN pain 3 days #12 01/28/24 Unknown Rx tabs Allergy/AdvReac Type Severity Reaction Status Date / Time erythromycin base Allergy Anaphylaxis Verified 01/28/24 13:06 Family History Grandfather CVA (cerebral vascular accident) Father CVA (cerebral vascular accident) Mother Anemia Other Heart disease Surgical History S/P hernia repair Status post right knee replacement Social History Smoking Status: Former smoker ROS ROS ED ROS Narrative Constitutional: No fever, no chills. HEENT: No sore throat. No neck pain. No loss of vision. No rhinorrhea. Cardiovascular: No chest pain. No palpitations. No pedal edema. Respiratory: No cough, no shortness of breath. Abdominal: No abdominal pain. No nausea. No vomiting. Genitourinary: No dysuria. No hematuria. Musculoskeletal: Left medial ankle pain, extending into left foot. Positive left calf pain, medial. No left medial thigh pain or swelling. Neurologic: No headaches. No dizziness. No lightheadedness. Skin: No rash. Positive change in color left ankle, patch in arch of the left foot. Psychiatric: No depression. No anxiety. EXAM Physical Exam Narrative Exam Narrative: Afebrile. Vital signs noted. HEENT: Normocephalic. Atraumatic. PERRL, EOMI. Neck soft and supple. No point tenderness or step off. Cardiovascular: Regular rate and rhythm with intermittent tachycardia. No murmurs, rubs, or gallops appreciated. Respiratory: No tachypnea. Lungs clear to auscultation bilaterally. Gastrointestinal: Abdomen soft, nontender, with normoactive bowel sounds. No rebound or guarding. Neurological: Awake. Alert. Nonfocal, nonlateralizing. Skin: No rash. Normal color except positive erythema left medial malleolus and patch on left arch of foot. No pallor. Musculoskeletal: No pedal edema. Full range of motion extremities. Good capillary refill to toes. Positive tenderness to palpation left medial gastrocnemius. No medial thigh pain. Const Vital Signs: 01/28/24 13:06 Temperature 98.7 F Temperature Source Temporal Pulse Rate 108 H Respiratory Rate 18 Blood Pressure 125/86 H Blood Pressure Mean 99 Pulse Ox 95 Oxygen Delivery Method Room Air MDM MDM MDM Narrative Medical decision making narrative: In the differential diagnosis would be cellulitis versus arthritis versus DVT. Patient does not really state that he has risk factors, but given the distribution of his pain, swelling, and redness, I ordered an ultrasound. In discussion with the transportation planning technician, he is positive for DVT below the knee. It is at the trunk and posterior tibial but not in the popliteal area. I discussed with him the risks and benefits of starting him on Eliquis. Although it is below the knee, he will be treated with his first dose of Eliquis here at 10 mg and starter pack obtained. Attempted to page Dr. Pulido/his PA with vascular surgery. He will also be given a prescription for oxycodone 5 mg for analgesia for the next 3 days. He was told of the risk of intracranial, GI, and spontaneous bleeding ranging from minor to catastrophic and acknowledges an understanding. I feel he can be discharged to follow-up. Return instructions to the emergency department were reviewed. Disposition is discharged home in stable condition. History & Record Review Discussion w/independent historian: Patient Additional record(s) reviewed:: Prior ED visit (Noncontributory to current chief complaint) Discharge Plan Triage Chief Complaint: Lower Extremity Injury ED Provider: Leobardo Marroquin Dx/Rx/DC Orders Clinical Impression: DVT (deep venous thrombosis), Leg pain, left Instructions: ED Deep Vein Thrombosis (DVT) Prescriptions: New Eliquis DVT-PE Treat 30D Start 5 mg (74 tabs) tablets,dose pack See Rx Instructions .ROUTE .COMPLEX Qty: 74 0RF Rx Instructions: orally per package directions oxycodone 5 mg tablet 5 mg PO Q6H PRN (Reason: pain) 3 Days Qty: 12 0RF No Action cholecalciferol (vitamin D3) 50 mcg (2,000 unit) capsule 50 mcg PO DAILY tamsulosin 0.4 mg capsule 0.4 mg PO DAILY loratadine 10 mg tablet 10 mg PO DAILY benzonatate 100 mg capsule 100 mg PO BID PRN (Reason: Cough) Lipotriad Vision Support 12,500 unit- 12.5 mg capsule PO budesonide-formoterol [Symbicort] 160-4.5 mcg/actuation HFA aerosol inhaler 2 puff inhalation BID Combivent Respimat 20-100 mcg/actuation mist 1 puff inhalation Q6H (DME) Carpal Tunnel Splint See Rx Instructions .Route .MEDSUPPLY Qty: 1 0RF Rx Instructions: G56.0 L3923 benzonatate 200 mg capsule 200 mg PO TID PRN (Reason: cough) Qty: 20 0RF amlodipine 10 mg tablet 10 mg PO DAILY ibuprofen 200 mg tablet 200 mg PO Q6H PRN esomeprazole magnesium 20 mg capsule,delayed release(DR/EC) 20 mg PO DAILY magnesium oxide 500 mg capsule 500 mg PO DAILY ProstaGenix 3 tab PO DAILY Ubrelvy 50 mg tablet 50 mg PO ONCE Qty: 10 1RF Rx Instructions: as a single dose; may repeat once in >=2 hours after first dose if needed Primary Care Provider: [facility] Referrals: Rashard Pulido MD [Med Staff - Active Staff] - 3-5 Days Kaur Suh MD [Med Staff - [facility]] - Activity Restrictions/Additional Instructions: Take medication as directed. Follow-up with Dr. Pulido in the next 3 to 5 days. Return with chest pain, shortness of breath, fever, new or worsening symptoms. Print Language: Andorran Disposition Disposition: Home, Self Care
[2024-01-28] MEDS: APIXABAN 5 MG TABLET 10 MG PO (14:37)
[2024-01-28 14:39] VITALS: BP 124/69; PULSE 72; RESP 16; TEMP 36.9; O2SAT 96
== END 2024-01-28 14:40 | disposition home or self-care (01) ==
PROVIDERS: Emergency Provider Emergency Medicine; Visit Provider Emergency Medicine
DX: I82.452 Acute embolism and thrombosis of left peroneal vein (principal); J44.9 Chronic obstructive pulmonary disease, unspecified; I82.442 Acute embolism and thrombosis of left tibial vein; I82.812 Embolism and thrombosis of superficial veins of left lower extremity; I10 Essential (primary) hypertension; Z79.51 Long term (current) use of inhaled steroids; Z79.899 Other long term (current) drug therapy; Z87.891 Personal history of nicotine dependence
CPT/HCPCS: 93971; 99282; A4216

== ENCOUNTER 2024-01-31 10:53 | Emergency (ER) | payer OTHER, SELFPAY ==
[2024-01-31 10:53] VITALS: BP 130/68; PULSE 96; RESP 16; TEMP 36.3; O2SAT 98
[2024-01-31 11:17] VITALS: BMI 26.6
[2024-01-31] MEDS: Acetaminophen 325 MG Tablet 650 MG PO (11:22)
--- NOTE | 2024-01-31 11:36 | VDLE_ITS ---
Reason For Study: Left leg pain RIGHT LEFT CFV is compressible, spontaneous, phasic, GSV is normal. competent and demonstrates normal CFV is compressible, spontaneous, phasic, augmentation. competent, and demonstrates normal Procedure augmentation. This is a venous duplex using B-mode, color FV is compressible, spontaneous, phasic, flow and spectral Doppler. competent and demonstrates normal Exam performed portable in ED. augmentation. Compared to 01/28/24. POP V is compressible, spontaneous, phasic, A preliminary report was called and/or faxed competent and demonstrates normal to Dr. Portillo. augmentation. Acute deep vein thrombosis is noted in the T/P Trunk distal, PTV, PeroV and SoleusV. It is NONCOMPRESSIBLE. Acute superficial vein thrombosis is noted in the GSV from prox to distal calf. Remaining GSV is compressible. VL/Venous Duplex US, Unilateral Interpretation Summary Acute deep vein thrombosis is noted in the left tibio-peroneal trunk vein, post erior tibial vein, peroneal vein, soleus vein Acute superficial vein thrombosis noted in the great saphenous vein in the calf . Ordering Physician: Soila Marks Referring Physician: [facility] Performed By: Lazara Morales RVT
--- NOTE | 2024-01-31 11:46 | EDS_ITS ---
HPI History of Present Illness Chief Complaint: Lower Extremity Injury Narrative Narrative: Patient presenting today due to swelling and pain to his left foot and ankle he has had since 01/21. He was seen here on 01/27 and was diagnosed with a DVT of his left lower extremity, he was started on Eliquis which he has been compliant with. He reports that since starting the Eliquis he is not having any improvement of his symptoms and his pain is worsening. PMH includes HTN, COPD, arthritis, and DVT of the LLE. He denies any chest pain or shortness of breath. [facility] Medical History Enlarged prostate Wears hearing aid Wears glasses Wears partial dentures Depression Anxiety High cholesterol Hx of migraine headaches Leg cramps Vision problem Kidney stones Former smoker COPD (chronic obstructive pulmonary disease) Home Medications ?Medication ?Instructions ?Recorded ?Last Taken ?Type budesonide-formoterol HFA 160 2 puff inhalation BID 10/31/21 Unknown History mcg-4.5 mcg/actuation aerosol inhaler (Symbicort) cholecalciferol (vitamin D3) 50 50 mcg PO DAILY 10/31/21 Unknown History mcg (2,000 unit) capsule ipratropium 20 mcg-albuterol 100 1 puff inhalation Q6H 10/31/21 Unknown History mcg/actuation mist for inhalation (Combivent Respimat) loratadine 10 mg tablet 10 mg PO DAILY 10/31/21 Unknown History tamsulosin 0.4 mg capsule 0.4 mg PO DAILY 10/31/21 Unknown History vit A 12,500 unit-zinc 12.5 1 cap PO DAILY 10/31/21 Unknown History ya-ywusos-ztwor-bilberry-herb #261 capsule (Lipotriad Vision Support) Carpal Tunnel Splint #1 ea 01/31/22 Unknown Rx benzonatate 200 mg capsule 200 mg PO TID PRN cough #20 caps 03/05/23 Unknown Rx ProstaGenix 3 tab PO DAILY 03/25/23 Unknown History amlodipine 10 mg tablet 10 mg PO DAILY 03/25/23 Unknown History esomeprazole magnesium 20 mg 20 mg PO DAILY 03/25/23 Unknown History capsule,delayed release ibuprofen 200 mg tablet 200 mg PO Q6H PRN pain 03/25/23 Unknown History magnesium oxide 500 mg capsule 500 mg PO DAILY 03/25/23 Unknown History apixaban 5 mg (74 tabs) tablets in See Rx Instructions PO .COMPLEX 01/28/24 Unknown Rx a dose pack (Eliquis DVT-PE Treat #74 tabs 30D Start) oxycodone 5 mg tablet 5 mg PO Q6H PRN pain 3 days #12 01/28/24 Unknown Rx tabs ubrogepant 50 mg tablet (Ubrelvy) 50 mg PO ONCE #10 tabs 01/29/24 Unknown Rx Allergy/AdvReac Type Severity Reaction Status Date / Time erythromycin base Allergy Anaphylaxis Verified 01/31/24 10:54 Family History Grandfather CVA (cerebral vascular accident) Father CVA (cerebral vascular accident) Mother Anemia Other Heart disease Surgical History S/P hernia repair Status post right knee replacement Social History Smoking Status: Former smoker ROS ROS ED Constitutional Constitutional ED: Denies chills or fever(s) Cardiovascular Cardiovascular: Denies chest pain Respiratory/Chest Respiratory/Chest: Denies cough or dyspnea Gastrointestinal Gastrointestinal: Denies abdominal pain, nausea or vomiting Musculoskeletal Musculoskeletal: Reports arthralgias Integumentary Denies rash Neurologic Neurologic: Denies paresthesias EXAM Physical Exam Const Vital Signs: 01/31/24 10:53 Temperature 97.3 F L Temperature Source Temporal Pulse Rate 96 Respiratory Rate 16 Blood Pressure 130/68 H Blood Pressure Mean 88 Pulse Ox 98 Oxygen Delivery Method Room Air Positive well nourished, well developed and no apparent distress General Appearance ED: well developed HEENT Reports normocephalic and head/scalp atraumatic Mouth ED: Yes moist mucous membranes normal Eyes PERRL and EOMs intact bilaterally Neck full ROM and supple Chest Wall inspection of chest normal Resp normal respiratory effort and clear to auscultation bilaterally Cardio regular rate and regular rhythm GI soft to palpation, non-tender, non-distended and no masses Back/Spine normal ROM and normal to inspection Extremity normal to inspection and full ROM Extremity Narrative: Swelling and pain to palpation to the dorsum of the left foot and left ankle. Left DP pulse 2+, good capillary refill, sensation intact Neuro oriented x3, CN's II-XII intact bilaterally, moves all extremities, no focal m otor deficits and no sensory deficits noted Sensorium / Orientation: awake and alert Psych mental status grossly normal and thought process normal Skin no rashes or lesions noted and no wounds MDM MDM MDM Narrative Medical decision making narrative: Patient presenting today due to swelling and pain in his left foot he has had since 01/21. Intact pulses and sensation to his left foot. He was diagnosed with a DVT in his left lower extremity 3 days ago and was started on Eliquis which he has been compliant with. Given his pain has been worsening, repeat ultrasound will be obtained to ensure the clot is not worsening. Ultrasound shows no increased size of the clot, given there is no significant change and encouraged that he continue his Eliquis and follow-up with Dr. Pulido who he was referred to during his last visit. I did place an nichelle bandage to help with the swelling and have encouraged that he keep his foot elevated to help with the swelling. He does have oxycodone and Tylenol at home he can take for pain as needed, he was given Tylenol here. Patient will be discharged home in stable condition. Return instructions were discussed. Discharge Plan Triage Chief Complaint: Lower Extremity Injury ED Midlevel Provider: Soila Marks ED Provider: Bhakti Portillo Dx/Rx/DC Orders Clinical Impression: DVT (deep venous thrombosis) Instructions: DVT Dc Prescriptions: No Action cholecalciferol (vitamin D3) 50 mcg (2,000 unit) capsule 50 mcg PO DAILY tamsulosin 0.4 mg capsule 0.4 mg PO DAILY loratadine 10 mg tablet 10 mg PO DAILY Lipotriad Vision Support 12,500 unit- 12.5 mg capsule 1 cap PO DAILY budesonide-formoterol [Symbicort] 160-4.5 mcg/actuation HFA aerosol inhaler 2 puff inhalation BID Combivent Respimat 20-100 mcg/actuation mist 1 puff inhalation Q6H (DME) Carpal Tunnel Splint See Rx Instructions .Route .MEDSUPPLY Qty: 1 0RF Rx Instructions: G56.0 L3923 benzonatate 200 mg capsule 200 mg PO TID PRN (Reason: cough) Qty: 20 0RF amlodipine 10 mg tablet 10 mg PO DAILY ibuprofen 200 mg tablet 200 mg PO Q6H PRN (Reason: pain) esomeprazole magnesium 20 mg capsule,delayed release(DR/EC) 20 mg PO DAILY magnesium oxide 500 mg capsule 500 mg PO DAILY ProstaGenix 3 tab PO DAILY Eliquis DVT-PE Treat 30D Start 5 mg (74 tabs) tablets,dose pack See Rx Instructions .ROUTE .COMPLEX Qty: 74 0RF Rx Instructions: orally per package directions oxycodone 5 mg tablet 5 mg PO Q6H PRN (Reason: pain) 3 Days Qty: 12 0RF Ubrelvy 50 mg tablet 50 mg PO ONCE Qty: 10 1RF Rx Instructions: as a single dose; may repeat once in >=2 hours after first dose if needed [facility] Referrals: Rashard Pulido MD [Med Staff - Active Staff] - 3-5 Days [facility] [Primary Care Provider[facility] - Activity Restrictions/Additional Instructions: Follow-up with Dr. Pulido and return for worsening of symptoms. Print Language: Frisian Disposition Disposition: Home, Self Care Discharge Date/Time: 01/31/24 12:22
== END 2024-01-31 12:22 | disposition home or self-care (01) ==
PROVIDERS: Emergency Provider Emergency Medicine; Visit Provider Emergency Medicine
DX: I82.409 Acute embolism and thrombosis of unspecified deep veins of unspecified lower extremity (principal); J44.9 Chronic obstructive pulmonary disease, unspecified; Z86.718 Personal history of other venous thrombosis and embolism; Z79.01 Long term (current) use of anticoagulants; E78.00 Pure hypercholesterolemia, unspecified; I10 Essential (primary) hypertension; Z87.891 Personal history of nicotine dependence
CPT/HCPCS: 93971; 99282

== ENCOUNTER 2024-02-25 11:11 | Emergency (ER) | payer OTHER, MEDICARE, SELFPAY ==
[2024-02-25] VITALS (8 sets, daily range): BP systolic 120–144; BP diastolic 67–86; PULSE 99–115; RESP 14–21; TEMP 36.8–38.4; O2SAT 90–96; BMI 28.0
--- NOTE | 2024-02-25 11:30 | ED.VIS.DYS ---
HPI History of Present Illness Chief Complaint: Cough [facility] Medical History Enlarged prostate Wears hearing aid Wears glasses Wears partial dentures Depression Anxiety High cholesterol Hx of migraine headaches Leg cramps Vision problem Kidney stones Former smoker COPD (chronic obstructive pulmonary disease) Home Medications ?Medication ?Instructions ?Recorded ?Last Taken ?Type budesonide-formoterol HFA 160 2 puff inhalation BID 10/31/21 Unknown History mcg-4.5 mcg/actuation aerosol inhaler (Symbicort) cholecalciferol (vitamin D3) 50 50 mcg PO DAILY 10/31/21 Unknown History mcg (2,000 unit) capsule ipratropium 20 mcg-albuterol 100 1 puff inhalation Q6H 10/31/21 Unknown History mcg/actuation mist for inhalation (Combivent Respimat) loratadine 10 mg tablet 10 mg PO DAILY 10/31/21 Unknown History tamsulosin 0.4 mg capsule 0.4 mg PO DAILY 10/31/21 Unknown History vit A 12,500 unit-zinc 12.5 1 cap PO DAILY 10/31/21 Unknown History lb-persdu-oxubj-bilberry-herb #261 capsule (Lipotriad Vision Support) Carpal Tunnel Splint #1 ea 01/31/22 Unknown Rx benzonatate 200 mg capsule 200 mg PO TID PRN cough #20 caps 03/05/23 Unknown Rx ProstaGenix 3 tab PO DAILY 03/25/23 Unknown History amlodipine 10 mg tablet 10 mg PO DAILY 03/25/23 Unknown History esomeprazole magnesium 20 mg 20 mg PO DAILY 03/25/23 Unknown History capsule,delayed release ibuprofen 200 mg tablet 200 mg PO Q6H PRN pain 03/25/23 Unknown History magnesium oxide 500 mg capsule 500 mg PO DAILY 03/25/23 Unknown History apixaban 5 mg (74 tabs) tablets in See Rx Instructions PO .COMPLEX 01/28/24 02/25/24 Rx a dose pack (Eliquis DVT-PE Treat #74 tabs 30D Start) oxycodone 5 mg tablet 5 mg PO Q6H PRN pain 3 days #12 01/28/24 Unknown Rx tabs ubrogepant 50 mg tablet (Ubrelvy) 50 mg PO ONCE #10 tabs 01/29/24 Unknown Rx Allergy/AdvReac Type Severity Reaction Status Date / Time erythromycin base Allergy Anaphylaxis Verified 02/25/24 11:13 Family History Grandfather CVA (cerebral vascular accident) Father CVA (cerebral vascular accident) Mother Anemia Other Heart disease Surgical History S/P hernia repair Status post right knee replacement Social History Smoking Status: Former smoker EXAM Physical Exam Const Vital Signs: 02/25/24 11:12 02/25/24 11:14 02/25/24 11:25 Temperature 99 F 101.1 F H Temperature Source Oral Oral Pulse Rate 115 H 111 H Respiratory Rate 14 18 Respiratory Effort Short of Breath Respiratory Depth Normal Respiratory Pattern Normal Blood Pressure 134/73 H 144/86 H Blood Pressure Mean 93 105 Pulse Ox 94 96 Oxygen Delivery Method Room Air Room Air Room Air 02/25/24 12:14 02/25/24 13:16 02/25/24 13:55 Temperature 98.2 F 98.4 F Temperature Source Oral Pulse Rate 109 H 111 H 106 H Respiratory Rate 21 H 16 20 H Respiratory Effort Respiratory Depth Respiratory Pattern Blood Pressure 124/67 H 130/75 H 120/68 Blood Pressure Mean 86 93 85 Pulse Ox 92 92 90 Oxygen Delivery Method Room Air Room Air MDM MDM MDM Narrative Medical decision making narrative: HISTORY OF PRESENT ILLNESS: 78-year-old male presents with cough, fever or sore throat. Notes positive COVID exposure. Notes history of COPD. He further states he has not been feeling well the last several days has been feeling more ill with sore throat fever feeling dehydrated. He denies any chest pain, shortness of breath, leg swelling. REVIEW OF SYSTEMS: Pertinent positives: Cough, fever, sore throat Pertinent negatives: Chest pain PHYSICAL EXAM: Nursing triage notes reviewed, Vital signs reviewed Constitutional: please see mdm HENT: MMM Eyes: Pupils equal round and reactive to light, Extraocular muscles intact Neck: No stridor, no JVD, full neck ROM Lungs: Clear to auscultation, No wheezing or rales. No increased work of breathing, no conversational dyspnea, no accessory muscle use, no nasal flaring. No respiratory distress noted Heart: Regular rate and rhythm, No murmurs, No rubs and No gallops, 2+ distal pulses (radial, femoral, posterior tibial) in all extremities Abdomen: Soft, there is no tenderness, rigidity, rebound or guarding, no obvious peritoneal signs, no palpable pulsatile abdominal masses, no auscultated abdominal bruit : No CVAT Extremities: No edema Neuro: No focal neurological deficits, cranial nerves II through XII intact, 5/5 strength in all extremities. Intact sensation to light touch in all extremities, 2+ reflexes bilateral patella tendons. Normal gait. No ataxia. Skin: No rash or lesions noted MEDICAL DECISION MAKING: Chief Complaint: Cough, COVID exposure External records reviewed: Imaging studies reviewed: No recent Sage imaging of the chest, no recent echocardiograms noted Factors affecting care: COPD, hyperlipidemia, hypertension, on Eliquis Social determinants of health: none History obtained from others: Family Consults: none at this time MDM Narrative: Patient was initially tachycardic otherwise borderline febrile. Appeared ill. I considered the following differential diagnosis: COVID, flu, RSV, pneumonia I obtained a broad lab and imaging workup to further elucidate etiology of patient's complaints. I given 5 cc bolus for rehydration and Tylenol and Toradol for fever control. ALL IMAGES (IF OBTAINED) HAVE BEEN PERSONALLY REVIEWED AND INTERPRETED BY MYSELF. COVID test was positive EKG with sinus tachycardia rate 115, left ax deviation, normal intervals, no STEMI BNP within normal limits High-sensitivity troponin is negative, no evidence of myocardial ischemia I have personally reviewed the patient's chest x-ray. Chest x-ray is unremarkable for pulmonary edema, pneumothorax, pneumonia or focal cardiopulmonary abnormality. CBC without leukocytosis, severe anemia, no thrombocytopenia. BMP without evidence of significant electrolyte abnormalities, no anion gap, no acute kidney injury. Patient was ambulated in the emergency department to assure there is no exertional hypoxia in the setting of COVID. Will attempt to prescribe patient Paxlovid as long as he has no medicine contraindications. Given the patient is on Eliquis and would not prescribe Paxlovid as it may adversely affect. The patient and/or family, caregivers express understanding. The patient and/or family, caregivers agrees with the plan. Shared decision making: I will have a discussion with the patient and or visitors regarding risk/benefits of further testing or admission. They will be made aware of of the risk/benefits inherent in this decision they will be given the opportunity to voice understanding. Total critical care time today provided was at least 0 minutes. This excludes separately billable procedures. Critical care time (if documented) is secondary to the patient having high probability of clinically significant/life threatening deterioration in the patient's condition which required my urgent intervention. Impression: 1. COVID-19 2. Tachycardia Dispo: discharge This note was generated with [employer] dictation software. It may contain incorrect words, spelling, and punctuation that were not noted in review of the chart prior to signing. Lab Data Labs: Laboratory Results - last 24 hr 02/25/24 02/25/24 11:35 12:01 WBC 9.9 RBC 4.89 Hgb 13.9 Hct 43.0 MCV 87.9 MCH 28.4 MCHC 32.3 RDW Std Deviation 45.0 H RDW Coeff of Ishmael 13.9 Plt Count 211 MPV 12.0 Immature Gran % (Auto) 0.300 Neut % (Auto) 78.5 H Lymph % (Auto) 9.5 L Branch % (Auto) 10.4 H Eos % (Auto) 0.9 Baso % (Auto) 0.4 Absolute Neuts (auto) 7.8 H Absolute Lymphs (auto) 0.94 Nucleated RBC % 0 Sodium 141 Potassium 3.8 Chloride 112 H Carbon Dioxide 23.0 Anion Gap 6 BUN 13 Creatinine 1.06 Est GFR (MDRD) Af Amer 87 Est GFR (MDRD) Non-Af 72 BUN/Creatinine Ratio 12.3 Glucose 104 Lactic Acid 1.8 Calcium 9.4 Troponin I High Sens 8 B-Natriuretic Peptide 31.4 Radiography Diagnostic Testing: Clinical Impression(s) from Imaging Studies Chest X-Ray 02/25/24 11:45 IMPRESSION: There are increased linear markings at the lung bases suggestive of linear atelectasis. Electronically Signed: Edward Bowman MD at 12:05 EDT , Discharge Plan Triage Chief Complaint: Cough ED Provider: Luis Daniel Joseph Dx/Rx/DC Orders Prescriptions: No Action cholecalciferol (vitamin D3) 50 mcg (2,000 unit) capsule 50 mcg PO DAILY tamsulosin 0.4 mg capsule 0.4 mg PO DAILY loratadine 10 mg tablet 10 mg PO DAILY Lipotriad Vision Support 12,500 unit- 12.5 mg capsule 1 cap PO DAILY budesonide-formoterol [Symbicort] 160-4.5 mcg/actuation HFA aerosol inhaler 2 puff inhalation BID Combivent Respimat 20-100 mcg/actuation mist 1 puff inhalation Q6H (DME) Carpal Tunnel Splint See Rx Instructions .Route .MEDSUPPLY Qty: 1 0RF Rx Instructions: G56.0 L3923 benzonatate 200 mg capsule 200 mg PO TID PRN (Reason: cough) Qty: 20 0RF amlodipine 10 mg tablet 10 mg PO DAILY ibuprofen 200 mg tablet 200 mg PO Q6H PRN (Reason: pain) esomeprazole magnesium 20 mg capsule,delayed release(DR/EC) 20 mg PO DAILY magnesium oxide 500 mg capsule 500 mg PO DAILY ProstaGenix 3 tab PO DAILY Eliquis DVT-PE Treat 30D Start 5 mg (74 tabs) tablets,dose pack See Rx Instructions .ROUTE .COMPLEX Qty: 74 0RF Rx Instructions: orally per package directions oxycodone 5 mg tablet 5 mg PO Q6H PRN (Reason: pain) 3 Days Qty: 12 0RF Ubrelvy 50 mg tablet 50 mg PO ONCE Qty: 10 1RF Rx Instructions: as a single dose; may repeat once in >=2 hours after first dose if needed [facility]errals[facility] [Primary Care Provider] - Print Language: Portuguese
--- NOTE | 2024-02-25 11:42 | EKG12_ITS ---
Test Reason : Blood Pressure : / mmHG Vent. Rate : 115 BPM Atrial Rate : 115 BPM P-R Int : 132 ms QRS Dur : 100 ms QT Int : 324 ms P-R-T Axes : 052 -22 053 degrees QTc Int : 448 ms Sinus tachycardia Otherwise normal ECG Confirmed by JOSLYN SALAS, CATHIE ([id number]), tape editor VIKASH ANNA ([id number]) on 02/28/2024 6:36:35 AM Referred By: Confirmed By:XIAO JORGENSEN MD
--- NOTE | 2024-02-25 11:45 | RAD_ITS ---
STUDY: X-RAY CHEST REASON FOR EXAM: Male, 78 years old. Shortness of breath. Flulike symptoms. TECHNIQUE: Single AP portable view of the chest. COMPARISON: Comparison is made with prior study April 10, 2021. FINDINGS: EKG electrodes are seen. There is elevation of the right hemidiaphragm. There are increased linear markings at the lung bases suggestive of bibasilar atelectasis. There is no demonstrated pleural abnormality. Normal size heart. Normal mediastinum and tristan. Normal visualized pulmonary arteries. Normal visualized aortic arch and descending thoracic aorta. Normal visualized thoracic spine. Normal visualized ribs, clavicles, and shoulders. There is no demonstrated abnormality of the visualized soft tissue structures of the upper abdomen. RAD/Chest 1 View (Portable) IMPRESSION: There are increased linear markings at the lung bases suggestive of linear atelectasis. Electronically Signed: Edward Bowman MD at 12:05 EDT ,
[2024-02-25 11:58] LABS: Absolute Lymphocyte Count 0.94 X10^3/uL (0.83-4.51); Absolute Neutrophil Count 7.8 X10^3/uL (2.0-7.7); Basophil# 0.04 X10^3/uL; Basophil% 0.4 % (0-1); Eosinophil# 0.09 X10^3/uL; Eosinophils% 0.9 % (0-5); Hemoglobin 13.9 g/dL (13.0-16.5); Lymphocyte # 0.94 X10^3/ul (0.83-4.51); Lymphocyte % 9.5 % (19-41); Mean Corp Hgb Conc 32.3 g/dL (32-36); Mean Corpuscular Hgb 28.4 pg (27.0-32.0); Mean Corpuscular Volume 87.9 fL (80-94); Monocyte# 1.03 X10^3/uL; Monocyte% 10.4 % (0-10); NRBC Flagged by Analyzer 0 % (0-5); Neutrophil # 7.81 X10^3/uL (2.7-7.7); Neutrophil % 78.5 % (47-70); Platelet Count 211 K/mm3 (150-450); RBC Distribution Width CV 13.9 % (11.6-14.6); Red Blood Count 4.89 M/mm3 (4.6-6.2); White Blood Count 9.9 K/mm3 (4.4-11.0)
[2024-02-25] MEDS: Acetaminophen 500 MG Tablet PO (11:59)
[2024-02-25] MEDS: Ketorolac 15 MG/ML Vial IV (11:59)
[2024-02-25] MEDS: 0.9% Normal Saline (500mL Bag) 500 ML 1000 ML IV (12:01)
[2024-02-25 12:17] LABS: Anion Gap 6 (5-15); BUN 13 mg/dL (7-18); BUN/Creat Ratio 12.3 RATIO (10-20); Calcium,Total 9.4 mg/dL (8.5-10.1); Chloride 112 mmol/L (98-107); Creatinine, Serum 1.06 mg/dL (0.70-1.30); EST Glomerular Filtration Rate 72 mL/min (>60); Est Glom Filt Rate - Afr Amer 87 mL/min (>60); Glucose 104 mg/dL (74-106); Potassium 3.8 mmol/L (3.5-5.1); Sodium Level 141 mmol/L (136-145); Troponin-I HS 8 pg/mL (3.0-78.0)
[2024-02-25 12:48] LABS: BNP,B-Type NATRIURETIC PEPTIDE 31.4 pg/mL (0-100)
[2024-02-25 12:54] LABS: Lactic Acid 1.8 mmol/L (0.4-1.9)
== END 2024-02-25 15:00 | disposition home or self-care (01) ==
PROVIDERS: Emergency Provider Emergency Medicine; Visit Provider Emergency Medicine
DX: U07.1 COVID-19 (principal); J44.9 Chronic obstructive pulmonary disease, unspecified; E78.00 Pure hypercholesterolemia, unspecified; Z87.891 Personal history of nicotine dependence; I10 Essential (primary) hypertension; R00.0 Tachycardia, unspecified; F32.A Depression, unspecified; F41.9 Anxiety disorder, unspecified
CPT/HCPCS: 71045; 80048; 83605; 83880; 84484; 85025; 87631; 93005; 96374; 99284; J7030; A4216

== ENCOUNTER 2024-11-15 13:19 | Inpatient (IN) | payer OTHER, SELFPAY ==
[2024-11-15] VITALS (10 sets, daily range): BP systolic 138–160; BP diastolic 77–90; PULSE 77–108; RESP 14–17; TEMP 36.4–37.1; O2SAT 91–96; BMI 27.3; BMI 26.4
--- NOTE | 2024-11-15 13:30 | EKG12_ITS ---
Test Reason : Blood Pressure : */* mmHG Vent. Rate : 98 BPM Atrial Rate : 98 BPM P-R Int : 142 ms QRS Dur : 110 ms QT Int : 366 ms P-R-T Axes : 67 -23 35 degrees QTcB Int : 467 ms Normal sinus rhythm Normal ECG Confirmed by Jon Gomes ([id number]), manager editorial CHRISTINE WREN ([id number]) on 11/16/2024 9:21:11 AM Referred By: Confirmed By: Jon Gomes
--- NOTE | 2024-11-15 13:33 | EX.ED.DYSGE1 ---
HPI History of Present Illness Chief Complaint: Flank Pain Informant: patient, family and EMS Narrative Narrative: 79-year-old male presents with left knee swelling and pain, low back pain, and fevers. He states 3 days ago, he had urologic surgery at the [place] to extract bladder stones, and something on my prostate. He was on Eliquis which he stopped prior to the surgery, he was having hematuria postoperatively, that is resolved now, but the day of the surgery, after he got home his left knee started hurting and it has gradually become worse to the point where now where he cannot move it and cannot stand or walk, seen also it is swollen, noticed the primary reason he came to the hospital today because he does not know what to do with regards to getting around. He is also having some low back discomfort that is nonlateralizing, does not go into his abdomen. The urine catheter is yellow now with small clots but he has continued to see flow. He has COPD but states it has been stable and no symptoms of a flareup. He had a temperature of 102.5 yesterday, today it was only 100.8 at home. Here he is afebrile. No discharge around the Bragg catheter or testicular pain. He states he had a history of pseudogout in the past that has affected his foot, however he was diagnosed with that clinically, he had these episodes twice before both times in his feet, and he never had any fluid withdrawn to verify or negate that diagnosis. [facility] Medical History Enlarged prostate Wears hearing aid Wears glasses Wears partial dentures Depression Anxiety High cholesterol Hx of migraine headaches Leg cramps Vision problem Kidney stones Former smoker COPD (chronic obstructive pulmonary disease) Home Medications ?Medication ?Instructions ?Recorded ?Last Taken ?Type budesonide-formoterol HFA 160 2 puff inhalation BID 10/31/21 11/14/24 History mcg-4.5 mcg/actuation aerosol inhaler (Symbicort) cholecalciferol (vitamin D3) 50 50 mcg PO DAILY 10/31/21 11/14/24 History mcg (2,000 unit) capsule loratadine 10 mg tablet 10 mg PO DAILY 10/31/21 11/15/24 History vit A 12,500 unit-zinc 12.5 1 cap PO DAILY 10/31/21 11/15/24 History qg-lzueif-lvcgb-bilberry-herb #261 capsule (Lipotriad Vision Support) Carpal Tunnel Splint #1 ea 01/31/22 Unknown Rx amlodipine 10 mg tablet 10 mg PO DAILY 03/25/23 11/15/24 History ibuprofen 200 mg tablet 200 mg PO Q6H PRN pain 03/25/23 Unknown History magnesium oxide 500 mg capsule 500 mg PO DAILY 03/25/23 11/15/24 History ubrogepant 100 mg tablet 100 mg PO ONCE #60 tabs 08/11/24 11/11/24 Rx apixaban 2.5 mg tablet 2.5 mg PO BID 11/15/24 11/15/24 History cephalexin 500 mg capsule 500 mg PO Q6 #40 CAPSULES 11/15/24 Unknown Rx esomeprazole magnesium 40 mg 40 mg PO BID 11/15/24 11/15/24 History capsule,delayed release finasteride 5 mg tablet 5 mg PO DAILY 11/15/24 11/15/24 History fluticasone propionate 50 2 spray intranasal DAILY 11/15/24 11/15/24 History mcg/actuation nasal spray,suspension (24 Hour Allergy Relief) polyvinyl alcohol-povidone 0.5 1 drp RIGHT EYE TID 11/15/24 11/15/24 History %-0.6 % eye drops (Artificial Tears (polyvinyl alcohol/povidone)) prednisone 20 mg tablet 40 mg (2 x 20 mg) PO DAILY 6 days 11/15/24 Unknown Rx #12 tabs psyllium 1 tbsp PO DAILY PRN constipation 11/15/24 Unknown History rosuvastatin 20 mg tablet (Crestor) 20 mg PO QODAY 11/15/24 11/15/24 History sodium chloride 0.65 % nasal spray 2 spray intranasal TID 11/15/24 11/15/24 History aerosol (Nasal [place] (sodium chloride)) tamsulosin 0.4 mg capsule (Flomax) 0.8 mg PO DAILY 11/15/24 11/14/24 History Allergy/AdvReac Type Severity Reaction Status Date / Time erythromycin base Allergy Anaphylaxis Verified 02/25/24 11:13 Family History Grandfather CVA (cerebral vascular accident) Father CVA (cerebral vascular accident) Mother Anemia Other Heart disease Surgical History S/P hernia repair Status post right knee replacement Social History Smoking Status: Former smoker ROS ROS ED Constitutional Constitutional ED: Reports fever(s); Denies chills Eyes Eyes: Denies change in vision or diplopia ENT ENT ED: Denies rhinorrhea or sore throat Cardiovascular Cardiovascular: Denies chest pain or palpitations Respiratory/Chest Respiratory/Chest: Denies cough or dyspnea Gastrointestinal Gastrointestinal: Denies abdominal pain, diarrhea, nausea or vomiting Genitourinary Genitourinary ED: Reports as per HPI and hematuria; Denies dysuria Musculoskeletal Musculoskeletal: Reports as per HPI, back pain, extremity pain and joint swelling; Denies neck pain Integumentary Denies abscess or rash Neurologic Neurologic: Denies headache(s), paresthesias or weakness Psychiatric Psychiatric: Denies anxiety or suicidal thoughts EXAM Physical Exam Const Vital Signs: 11/15/24 13:20 11/15/24 13:30 11/15/24 13:33 Temperature 97.6 F L 98.4 F Temperature Source Oral Oral Pulse Rate 105 H 91 Respiratory Rate 16 16 Blood Pressure 143/83 H 139/81 H Blood Pressure Mean 103 100 Pulse Ox 95 96 Oxygen Delivery Method Room Air Room Air Room Air 11/15/24 14:30 11/15/24 15:30 11/15/24 16:00 Temperature 98.2 F 97.7 F L 98.1 F Temperature Source Oral Oral Oral Pulse Rate 96 91 92 Respiratory Rate 17 15 16 Blood Pressure 138/77 H 147/83 H 146/78 H Blood Pressure Mean 97 104 100 Pulse Ox 95 95 94 Oxygen Delivery Method Room Air Room Air Room Air 11/15/24 17:00 Temperature 98.5 F Temperature Source Oral Pulse Rate 92 Respiratory Rate 16 Blood Pressure 154/86 H Blood Pressure Mean 108 Pulse Ox 95 Oxygen Delivery Method Room Air Positive well nourished and well developed Constitutional Narrative: Well-appearing in no distress keenly alert conversive and pleasant General Appearance ED: well developed and NAD HEENT Reports moist mucous membranes normocephalic and atraumatic Eyes PERRL and EOMs intact bilaterally Neck full ROM and supple Resp normal respiratory effort and clear to auscultation bilaterally Cardio regular rate, regular rhythm and no murmurs Rate: other Other Details: Borderline tachycardia GI non-tender and non-distended Auscultation: normoactive bowel sounds Palpation: soft Narrative: Bragg catheter in place, no discharge or bleeding from the urethral meatus around the catheter. There is transparent yellow urine in the catheter with small specks of blood clots within it, it is flowing with plenty of yellow urine in the bag. Back/Spine no CVA tenderness General Back: other FROM Extremity normal to inspection Extremity Narrative: Patient's left knee is held in 30 degrees of flexion, he states he cannot move it because hurts about. He tries but is very limited due to pain. There is a large effusion and the knee is warm but there is no erythema. No skin lesions. Diffuse soft tissue tenderness no bony tenderness. General Extremety ED: Yes tenderness; Negative for edema or pulses abnormal General Extremity: Negative for edema or pulses abnormal Neuro oriented x3, CN's II-XII intact bilaterally and no sensory deficits noted Sensorium / Orientation: awake and alert Motor Exam: strength 5/5 throughout Psych mental status grossly normal Skin no rashes or lesions noted and no wounds MDM MDM MDM Narrative Medical decision making narrative: Given the patient's symptoms of mild tachycardia septic workup was obtained/ordered. 1 view chest x-ray my interpretation shows COPD but no acute pneumonia. We sent his urine to the lab it does show some indicators for infection but my concern was that he also could have septic arthritis of the left knee. He just restarted his Eliquis taking it first dose couple hours ago so I advised the patient of the pros and cons of an arthrocentesis in context of anticoagulant, and the sooner that we did the procedure the better which is what I recommend I think the benefits outweigh the risks of bleeding/hemarthrosis here and he was amenable so we did the procedure see the note. The results are mixed, there are no crystals seen, there are around 10.5 K neutrophils, he does not have a significant leukocytosis but his ESR is a little elevated and his CRP is significantly elevated. His urinalysis shows blood a few pyuria, but no bacteria, unclear if his fevers were due to urinary infection or the knee. I discussed with Dr. Rosado with orthopedics, we obtain 2 view left knee x-rays which mitral rotation showed some degenerative changes but nothing acute, this was done after the arthrocentesis. I attempted to have the patient ambulate, after we placed an George wrap on his knee. He was able, and is doing well. He states that his knee feels and moves remarkably better after the arthrocentesis. Dr. Rosado states this arthrocentesis results argues against an acute septic arthritis, and clinically I agree that his exam is less consistent with that after the arthrocentesis performed. I am going to treat him empirically for a possible bladder infection given his recent instrumentation, fever, and low back discomfort. Since we sent his knee fluid and urine and blood for cultures, his lactate came back negative and his vital signs are normal he is not septic after the workup completed, we are all comfortable with him going home on prednisone for the knee, empiric antibiotics for the urine, and close outpatient Ortho follow-up within the next several days to 1 week, [facility]. Lab Data Attestation: I reviewed the patient's lab results. Labs: Laboratory Results - last 24 hr 11/15/24 11/15/24 11/15/24 13:37 13:50 13:55 WBC 9.8 RBC 4.66 Hgb 13.8 Hct 40.6 MCV 87.1 MCH 29.6 MCHC 34.0 RDW Std Deviation 41.3 RDW Coeff of Ishmael 13.1 Plt Count 145 L MPV 12.3 H Immature Gran % (Auto) 0.400 Neut % (Auto) 67.3 Lymph % (Auto) 20.2 [place] % (Auto) 11.6 H Eos % (Auto) 0.2 Baso % (Auto) 0.3 Absolute Neuts (auto) 6.6 Absolute Lymphs (auto) 1.98 Nucleated RBC % 0 ESR 31 H PT 14.2 INR 1.1 APTT 28.8 Sodium 140 Potassium 3.3 Chloride 104 Carbon Dioxide 21.2 Anion Gap 15 BUN 11 Creatinine 0.80 Estim Creat Clear Calc 71.15 Est GFR (MDRD) Non-Af 91 BUN/Creatinine Ratio 13.5 Glucose 106 H Lactic Acid < 1.0 Uric Acid 4.2 Calcium 9.2 Total Bilirubin 0.66 AST 16 ALT 6 Alkaline Phosphatase 56 C-React Prot Ext Range 101.00 H Total Protein 7.1 Albumin 3.9 Globulin 3.2 Albumin/Globulin Ratio 1.2 Urine Color Yellow Urine Clarity Sl. Cloudy Urine pH 6.0 Ur Specific [place] 1.015 Urine Protein 500 H Urine Glucose (UA) Normal Urine Ketones 50 H Urine Occult Blood 250 H Urine Nitrite Negative Urine Bilirubin Negative Urine Urobilinogen Normal Ur Leukocyte Esterase 100 H Urine RBC > 100 SEEN Urine WBC 25-50 SEEN Ur Squamous Epith Cells 0 SEEN Urine Bacteria 0 SEEN Urine Mucus 2+ Fluid Source Cancelled Fluid Color Cancelled Fluid Appearance Cancelled Fluid WBC Cancelled Fluid RBC Cancelled Fluid Tot Cell Count Cancelled [place] Polynuclear WBCs # Cancelled [place] Polynuclear WBCs % Cancelled Fluid Mononuclear WBCs Cancelled [place] Mononuclear WBCs % Cancelled Fluid Neutrophils Cancelled Fluid Lymphocytes Cancelled Fluid Monocytes Cancelled Fluid Plasma Cells Cancelled Fluid Macrophages Cancelled [place] Mesothelial Cells Cancelled Fluid Other Cells Cancelled Fluid Crystals NO CRYSTALS SEEN Fluid Crystal Source SYNOVIAL Fl Pathologist Comment Cancelled Fluid Comment 2 Cancelled Synovial Source KNEE Synovial Color Yellow Synovial Appearance Cloudy Synovial Viscosity Sl. Viscous Synovial WBC 10.5540 H Synovial RBC [address] 10.5520 H Synov Polynuclear WBCs 9.099 Synov Mononuclear WBCs 1.078 Synovial Neutrophils 95 H Synovial Lymphocytes 5 Synovial Polynuclear % 89.4 Synovial Mononuclear % 10.[address] Comment May follow Radiography Diagnostic Testing: Clinical Impression(s) from Imaging Studies Chest X-Ray 11/15/24 14:19 IMPRESSION: No focal consolidations. Reading Location: [facility] Knee X-Ray 11/15/24 16:40 IMPRESSION: No acute fracture or dislocation. Mild-moderate osteoarthritis. Moderate joint effusion and suprapatellar soft tissue swelling. Reading [facility] [place] Rhythm Strip Rhythm Strip: Sinus Tach Rate: 105 Ectopy: None EKG Initial EKG: Attestation: I personally reviewed and interpreted this EKG as follows: Interpretation: Sinus Rhythm (98) and No Acute Injury Pattern Comments: Leftward axis. Otherwise intervals normal and EKG otherwise unremarkable and unchanged compared with prior Prior EKG tracings: available for review Prior: Unchanged Management Discussion w/another healthcare provider: [employer] (Ortho Dr. Rosado) Procedures Other Procedures Procedure(s): Left knee arthrocentesis: Isopropanol followed by chlorhexidine sterile prep and drape, locally anesthetized with 1 cc of plain 1% lidocaine from a medial approach, followed by a 21-gauge needle, withdrew straw-colored fluid with positive string sign, a total of 48 cc, replacing the syringe while holding the needle and not replacing it into the knee. There was no hemarthrosis or blood withdrawn, dressed with a bandage afterwards tolerated well with no complications he was able to bend it better afterwards and noted improvement of his discomfort. Discharge Plan Triage Chief Complaint: Flank Pain ED Provider: Brandon Del Valle Dx/Rx/DC Orders Clinical Impression: Arthritis of left knee, History of fever, Effusion of knee joint, left, Acute cystitis without hematuria Instructions: ED Knee Effusion, ED Bladder Infection, Male (Adult) Prescriptions: New prednisone 20 mg tablet 40 mg PO DAILY 6 Days Qty: 12 0RF cephalexin 500 mg capsule 500 mg PO Q6 Qty: 40 0RF No Action cholecalciferol (vitamin D3) 50 mcg (2,000 unit) capsule 50 mcg PO DAILY loratadine 10 mg tablet 10 mg PO DAILY Lipotriad Vision Support 12,500 unit- 12.5 mg capsule 1 cap PO DAILY budesonide-formoterol [Symbicort] 160-4.5 mcg/actuation HFA aerosol inhaler 2 puff inhalation BID (DME) Carpal Tunnel Splint See Rx Instructions .Route .MEDSUPPLY Qty: 1 0RF Rx Instructions: G56.0 [id number] amlodipine 10 mg tablet 10 mg PO DAILY ibuprofen 200 mg tablet 200 mg PO Q6H PRN (Reason: pain) magnesium oxide 500 mg capsule 500 mg PO DAILY apixaban 2.5 mg tablet 2.5 mg PO BID finasteride 5 mg tablet 5 mg PO DAILY tamsulosin [Flomax] 0.4 mg capsule 0.8 mg PO DAILY fluticasone propionate [24 Hour Allergy Relief] 50 mcg/actuation spray,suspension 2 spray intranasal DAILY Rx Instructions: administer into each nostril rosuvastatin [Crestor] 20 mg tablet 20 mg PO QODAY psyllium Powder 1 tbsp PO DAILY PRN (Reason: constipation) Rx Instructions: mix into at least 8 oz of water or juice before administering Artificial Tears(pvalch-povid) 0.5-0.6 % drops 1 drp RIGHT EYE TID esomeprazole magnesium 40 mg capsule,delayed release(DR/EC) 40 mg PO BID Nasal [place] (sodium chloride) 0.65 % aerosol,spray 2 spray intranasal TID ubrogepant 100 mg tablet 100 mg PO ONCE Qty: 60 1RF Rx Instructions: May repeat once in >=2 hours after first dose if needed. Maximum dose is 200 mg in 24 hours. Primary Care Provider: [facility] Referrals: Iván Rosado MD [Med Staff - Active Staff] - (Saturday in [place], or in [place], or a day in between with one of the physician assistants in the office in [place]) [facility] [Primary Care Provider] - Keep [facility]enny appointment Print Language: Bulgarian Disposition Disposition: Home, Self Care
[2024-11-15 13:46] LABS: Bacteria 0 SEEN /hpf (None Seen); Squamous Epithelial Cells - UA 0 SEEN /hpf (0-5)
[2024-11-15 13:52] LABS: Color, Urine Yellow (Yellow); Glucose, Dipstick Normal (Normal); Ketone-Dipstick 50 mg/dl (Negative); Leukocyte Esterase-Dipstick 100 /ul (Negative); Nitrite-Dipstick Negative (Negative); Occult Blood-Urine 250 /ul (Negative); Protein-Dipstick 500 mg/dl (Negative); Specific Gravity, Urine 1.015 (1.002-1.030); Urine Bilirubin Dipstick Negative (Negative); Urine Clarity Sl. Cloudy (Clear); Urine Urobilinogen Normal (Normal)
[2024-11-15] MEDS: 0.9% Normal Saline (1000mL) 1,000 ML 999 ML IV (13:55)
[2024-11-15 13:57] LABS: Mucous, Urine 2+ /hpf (<or=2+); Red Blood Cells-Urine > 100 SEEN /hpf (0-5); White Blood Cells 25-50 SEEN /hpf (0-5)
[2024-11-15 14:00] LABS: Erythrocyte Sedimentation Rate 31 mm/hr (0-20)
[2024-11-15 14:01] LABS: Absolute Lymphocyte Count 1.98 X10^3/uL (0.83-4.51); Absolute Neutrophil Count 6.6 X10^3/uL (2.0-7.7); Basophil# 0.03 X10^3/uL; Basophil% 0.3 % (0-1); Eosinophil# 0.02 X10^3/uL; Eosinophils% 0.2 % (0-5); Hematocrit 40.6 % (40-54); Hemoglobin 13.8 g/dL (13.0-16.5); Lymphocyte # 1.98 X10^3/ul (0.83-4.51); Lymphocyte % 20.2 % (19-41); Mean Corpuscular Hgb 29.6 pg (27.0-32.0); Mean Corpuscular Volume 87.1 fL (80-94); Mean Platelet Vol. 12.3 fl (6.2-12.0); Monocyte# 1.14 X10^3/uL; Monocyte% 11.6 % (0-10); NRBC Flagged by Analyzer 0 % (0-5); Neutrophil # 6.59 X10^3/uL (2.7-7.7); Neutrophil % 67.3 % (47-70); Platelet Count 145 K/mm3 (150-450); RBC Distribution Width CV 13.1 % (11.6-14.6); RBC Distribution Width SD 41.3 fl (35.1-43.9); Red Blood Count 4.66 M/mm3 (4.6-6.2); White Blood Count 9.8 K/mm3 (4.4-11.0)
[2024-11-15 14:08] LABS: International Normalized Ratio 1.1; Prothrombin Time (Protime)PT. 14.2 SECONDS (11.7-14.9)
[2024-11-15 14:09] LABS: Partial Thromboplast Time 28.8 Seconds (24.1-36.2)
[2024-11-15 14:16] LABS: Uric Acid 4.2 mg/dL (3.5-7.2)
--- NOTE | 2024-11-15 14:19 | RAD_ITS ---
PROCEDURE: CHEST 1 VIEW (PORTABLE) 11/15/2024 REASON FOR EXAM: FEVER TECHNIQUE: Frontal view of the chest. COMPARISON: 02/25/24 FINDINGS: No focal consolidations. No pleural effusion or pneumothorax. Cardiac silhouette is unchanged. No acute fractures RAD/Chest 1 View (Portable) IMPRESSION: No focal consolidations. Reading Location: [facility]
[2024-11-15 14:21] LABS: ALB/GLOB Ratio 1.2 RATIO (0.9-2.4); AST(SGOT) 16 U/L (<=37); Alanine Aminotransfer ALT/SGPT 6 U/L (<=46); Albumin, Serum 3.9 g/dL (3.4-4.8); Alkaline Phosphatase 56 U/L (40-129); Anion Gap 15 (5-15); BUN 11 mg/dL (4-19); BUN/Creat Ratio 13.5 RATIO (10-20); Calcium,Total 9.2 mg/dL (7.6-11.0); Carbon Dioxide 21.2 mmol/L (21.0-32.0); Chloride 104 mmol/L (98-108); EST Glomerular Filtration Rate 91 (>60); Estimated Creatinine Clearance 71.15 ml/min (50-250); Globulin 3.2 g/dL (2.2-4.2); Glucose 106 mg/dL (70-99); Potassium 3.3 mmol/L (3.3-5.1); Protein, Total 7.1 g/dL (5.9-8.4); Sodium Level 140 mmol/L (133-145); Total Bilirubin 0.66 mg/dL (0.00-1.30)
[2024-11-15 14:31] LABS: Lactic Acid < 1.0 mmol/L (0.0-2.0)
[2024-11-15 14:32] LABS: Pathologist Comment May follow; Synovial Fld Mononuclear WBC # 1.078 10^3/ul; Synovial Fld Mononuclear WBC % 10.6 %; Synovial Fld Polynuclear WBC # 9.099 10^3/uL; Synovial Fld Polynuclear WBC % 89.4 %
[2024-11-15 14:35] LABS: AUTO B FLUID DILUENT BKGD CT WBC <0.1 RBC <0.01 (W<.1,R<.01); Appearance /Synovial Fluid Cloudy (CLEAR); CRYSTALS, BODY FLUID NO CRYSTALS SEEN; Color / Synovial Fluid Yellow (Pale Yellow); Source / Synovial Fluid KNEE; Source- Body Fluid SYNOVIAL; Viscosity / Synovial Fluid Sl. Viscous (HIGH)
[2024-11-15 14:36] LABS: RBC /Synovial Fluid 0 /mm3 (0)
[2024-11-15 16:02] LABS: Lymph 5 %; Neutrophil 95 % (0-25)
--- NOTE | 2024-11-15 16:40 | RAD_ITS ---
PROCEDURE: KNEE 1 OR 2 VIEWS 11/15/2024 REASON FOR EXAM: PAIN TECHNIQUE: 2 view(s) of the left knee COMPARISON: 03/14/2022 FINDINGS: Tricompartmental joint space narrowing, most prominent of the medial joint space. Mild-moderate chondrocalcinosis. No acute fracture or dislocation. Tiny marginal osteophytes. Moderate joint effusion and suprapatellar soft tissue swelling. RAD/Knee 1 or 2 Views IMPRESSION: No acute fracture or dislocation. Mild-moderate osteoarthritis. Moderate joint effusion and suprapatellar soft tissue swelling. Reading Location: [facility]
[2024-11-15] MEDS: Ceftriaxone 1 GM/50 ML BAG IV (18:11)
[2024-11-15] MEDS: predniSONE 20 MG Tablet 40 MG PO (18:11)
--- NOTE | 2024-11-15 18:44 | HP.PCM.HOS_ITS ---
HPI - General General Date of Admission: 11/15/24 Date of Service: 11/15/24 Chief Complaint: Left knee pain HPI Narrative CARYL CURIEL, is a 79-year-old male with history of COPD, BPH, DVTs, hypertension, GERD, on Eliquis, who presented to [facility] ED 11/15/2024 due to left knee swelling, pain, low back pain, fevers. 3 days ago he had urologic surgery at the [facility] to extend lacked bladder stones and something on his prostate. He takes Eliquis chronically but this was stopped prior to surgery. He did have hematuria but this is now resolved so his Eliquis was resumed. After he got home his left knee started hurting and its gradually become worse to the point where now he cannot move and cannot stand or walk, also is swollen. Patient came to the ED primarily because he does not know what to do since he cannot get around. Does have some low back discomfort that is vague and does not go to his abdomen. Has urinary catheter in place with small clots but is still flowing. Patient yesterday had a temperature of 102.5 and today it was 100.8 at home. Does note history of pseudogout in his knee. In the ED temperature 97.6, heart rate 105 with blood pressure 143/83. Respiratory rate 16 pulse ox 95% on room air. Platelet count 145 with a white blood cell count of 9.8, ESR 31 but a CRP of 101. UA with occult blood, leuk esterase but no bacteria. Given the warmth and swelling of the knee patient underwent arthrocentesis which showed elevated white blood cell count and no crystals were seen. Ortho contacted and initially given the fluid differential and the fact that patient's symptoms improved significantly to the point he was able to walk plan was to discharge home however synovial fluid Gram stain resulted shortly before patient discharge with rare gram-positive rods. Ortho was recontacted and recommended admission with Ortho consult. Hospitalist contacted for admission. Patient reports history as above, does still have some knee pain on palpation but does feel significantly better after arthrocentesis. Also reports his back/flank pain is gone. No new acute complaints at this time [facility] Medical History (Updated 11/15/24 @ 18:[address] Ashley Estevez MD) Anxiety COPD (chronic obstructive pulmonary disease) Depression Enlarged prostate Former smoker High cholesterol History of DVT (deep vein thrombosis) Hx of migraine headaches Kidney stones Leg cramps Vision problem Wears glasses Wears hearing aid Wears partial dentures Home Medications ?Medication ?Instructions ?Recorded ?Last Taken ?Type budesonide-formoterol HFA 160 2 puff inhalation BID 11/14/24 History mcg-4.5 mcg/actuation aerosol inhaler (Symbicort) cholecalciferol (vitamin D3) 50 50 mcg PO DAILY 11/14/24 History mcg (2,000 unit) capsule loratadine 10 mg tablet 10 mg PO DAILY 10/31/2111/05 History vit A 12,500 unit-zinc 12.5 1 cap PO DAILY 10/31/21 History pn-[id number]-htynd-bilberry-herb #261 capsule (Lipotriad Vision Support) Carpal Tunnel Splint #1 ea 01/31/22 Unknown Rx amlodipine 10 mg tablet 10 mg PO DAILY 03/25/2311/05 History ibuprofen 200 mg tablet 200 mg PO Q6H PRN pain 03/25 Unknown History magnesium oxide 500 mg capsule 500 mg PO DAILY 3 11/15/24 History ubrogepant 100 mg tablet 100 mg PO ONCE #60 tabs 02/0 10/3011/11/24 Rx apixaban 2.5 mg tablet 2.5 mg PO BID 11/15/2411/15 History cephalexin 500 mg capsule 500 mg PO Q6 #40 CAPSULES Unknown Rx esomeprazole magnesium 40 mg 40 mg PO BID 11/15/2406/01 History capsule,delayed release finasteride 5 mg tablet 5 mg PO DAILY 11/15/2411/15 History fluticasone propionate 50 2 spray intranasal DAILY 06/0111/15/24 History mcg/actuation nasal spray,suspension (24 Hour Allergy Relief) polyvinyl alcohol-povidone 0.5 1 drp RIGHT EYE TID 06/0111/15/24 History %-0.6 % eye drops (Artificial Tears (polyvinyl alcohol/povidone)) prednisone 20 mg tablet 40 mg (2 x 20 mg) PO DAILY 6 days 11/15/24 Unknown Rx #12 tabs psyllium 1 tbsp PO DAILY PRN constipa tion 11/15/24 Unknown History rosuvastatin 20 mg tablet (Crestor) 20 mg PO QODAY 06/0111/15/24 History sodium chloride 0.65 % nasal spray 2 spray intranasal TID 11/15/24 11/15/24 History aerosol (Nasal [place] (sodium chloride)) tamsulosin 0.4 mg capsule (Flomax) 0.8 mg PO DAILY 06/0111/14/24 History Allergy/AdvReac Type Severity Reaction Status Date / Time erythromycin base Allergy Anaphylaxis Verified 02/25/24 11:13 Family History Grandfather CVA (cerebral vascular accident) Father CVA (cerebral vascular accident) Mother Anemia Other Heart disease Surgical History S/P hernia repair Status post right knee replacement Social History Smoking Status: Former smoker ROS ROS Narrative General: Has had fevers and chills over the past several days HENT: Did have a headache earlier that is resolved, denies stuffy nose, denies sore throat EYES: Denies changes in vision Resp: Had a little bit of cough with clear phlegm earlier today, denies shortness of breath Cardiac: Denies chest pain GI: Denies abdominal pain, denies changes in bowel, denies nausea/vomiting : Bragg catheter in place Extremity: Left knee swelling MSK: Left knee pain Neuro: Denies any numbness/tingling Heme: Denies any bleeding or bruising Psychiatric: No complaints voiced Vital Signs Vital Signs Vital Signs: 11/15/24 13:20 11/15/24 13:30 11/15/24 13:33 Temperature 97.6 F L 98.4 F Temperature Source Oral Oral Pulse Rate 105 H 91 Respiratory Rate 16 16 Blood Pressure 143/83 H 139/81 H Blood Pressure Mean 103 100 Pulse Ox 95 96 Oxygen Delivery Method Room Air Room Air Room Air 11/15/24 14:30 11/15/24 15:30 11/15/24 16:00 Temperature 98.2 F 97.7 F L 98.1 F Temperature Source Oral Oral Oral Pulse Rate 96 91 92 Respiratory Rate 17 15 16 Blood Pressure 138/77 H 147/83 H 146/78 H Blood Pressure Mean 97 104 100 Pulse Ox 95 95 94 Oxygen Delivery Method Room Air Room Air Room Air 11/15/24 17:00 11/15/24 18:00 Temperature 98.5 F 98.4 F Temperature Source Oral Oral Pulse Rate 92 102 H Respiratory Rate 16 16 Blood Pressure 154/86 H 149/86 H Blood Pressure Mean 108 107 Pulse Ox 95 95 Oxygen Delivery Method Room Air Room Air Weight Weight: 79.1 kg Body Mass Index (BMI) 27.3 Physical Exam Narrative General: Alert, oriented, no apparent distress HEENT: Atraumatic, normocephalic Eyes: Anicteric, normal conjunctiva, extraocular movements grossly intact Neck: Supple Respiratory: No overt wheezes or rhonchi, normal respiratory effort Cardiovascular: Regular rate and rhythm GI: Soft, nontender, nondistended Extremities: No edema Musculoskeletal: Left knee wrapped, does have some pain on palpation especially on anterior aspect of knee, has pain on extension but is almost able to extend knee all the way though slightly limited Neuro: No overt focal neurological deficits Skin: No rashes appreciated Psych: Cooperative Results Lab / Micro Data 11/15/24 13:50 11/15/24 13:50 Labs: Laboratory Results - last 24 hr 11/15/24 13:37: Urine Color Yellow, Urine Clarity Sl. Cloudy, Urine pH 6.0, Ur Specific [place] 1.015, Urine Protein 500 H, Urine Glucose (UA) Normal, Urine Ketones 50 H, Urine Occult Blood 250 H, Urine Nitrite Negative, Urine Bilirubin Negative, Urine Urobilinogen Normal, Ur Leukocyte Esterase 100 H, Urine RBC > 100 SEEN, Urine WBC 25-50 SEEN, Ur Squamous Epith Cells 0 SEEN, Urine Bacteria 0 SEEN, Urine Mucus 2+ 11/15/24 13:50: WBC 9.8, RBC 4.66, Hgb 13.8, Hct 40.6, MCV 87.1, MCH 29.6, MCHC 34.0, RDW Std Deviation 41.3, RDW Coeff of Ishmael 13.1, Plt Count 145 L, MPV 12.3 H , Immature Gran % (Auto) 0.400, Neut % (Auto) 67.3, Lymph % (Auto) 20.2, [place] % (Auto) 11.6 H, Eos % (Auto) 0.2, Baso % (Auto) 0.3, Absolute Neuts (auto) 6.6, Absolute Lymphs (auto) 1.98, Nucleated RBC % 0, ESR 31 H, PT 14.2, INR 1.1, APTT 28.8, Sodium 140, Potassium 3.3, Chloride 104, Carbon Dioxide 21.2, Anion Gap 15, BUN 11, Creatinine 0.80, Estim Creat Clear Calc 71.15, Est GFR (MDRD) Non-Af 91, BUN/Creatinine Ratio 13.5, Glucose 106 H, Lactic Acid < 1.0, Uric Acid 4.2, Calcium 9.2, Total Bilirubin 0.66, AST 16, ALT 6, Alkaline Phosphatase 56, C- React Prot Ext Range 101.00 H, Total Protein 7.1, Albumin 3.9, Globulin 3.2, Albumin/Globulin Ratio 1.2 11/15/24 13:55: Fluid Source Cancelled, Fluid Color Cancelled, Fluid Appearance Cancelled, Fluid WBC Cancelled, Fluid RBC Cancelled, Fluid Tot Cell Count Cancelled, Fld Polynuclear WBCs # Cancelled, Fld Polynuclear WBCs % Cancelled, Fluid Mononuclear WBCs Cancelled, Fld Mononuclear WBCs % Cancelled, Fluid Neutrophils Cancelled, Fluid Lymphocytes Cancelled, Fluid Monocytes Cancelled, Fluid Plasma Cells Cancelled, Fluid Macrophages Cancelled, Fld Mesothelial Cells Cancelled, Fluid Other Cells Cancelled, Fluid Crystals NO CRYSTALS SEEN, Fluid Crystal Source SYNOVIAL, Fl Pathologist Comment Cancelled, Fluid Comment 2 Cancelled, Synovial Source KNEE, Synovial Color Yellow, Synovial Appearance Cloudy, Synovial Viscosity Sl. Viscous, Synovial WBC 10.5540 H, Synovial RBC 0, Synovial Tot Cell Ct 10.5520 H, Synov Polynuclear WBCs 9.099, Synov Mononuclear WBCs 1.078, Synovial Neutrophils 95 H, Synovial Lymphocytes 5, Synovial Polynuclear % 89.4, Synovial Mononuclear % 10.6, Synovial Path Comment May follow Micro: Microbiology 11/15/24 13:55 Fluid - Synovial (joint) Gram Stain - Final Rhythm Strip Rhythm Strip: Sinus Tach Rate: 105 Ectopy: None Imaging Radiology Impression Chest X-Ray 11/15/24 14:19 IMPRESSION: No focal consolidations. Reading Location: [facility] Knee X-Ray 11/15/24 16:40 IMPRESSION: No acute fracture or dislocation. Mild-moderate osteoarthritis. Moderate joint effusion and suprapatellar soft tissue swelling. [facility] Assessment & Plan Assessment/Plan (1) Left knee pain: (2) History of DVT (deep vein thrombosis): PLAN: Plan # Concern for possible septic arthritis - Arthrocentesis synovial fluid with elevated white blood cell count, knee x-ray with joint effusion, synovial fluid Gram stain growing rare gram-positive rods -IV abx, patient started on triple therapy/coverage in the ED, will continue for now -ID consult -ED physician spoke with orthopedic surgery who is aware of patient, they will see him in consultation - Pain control/supportive care - PT/OT - CRP was elevated at 110, repeat in the a.m. - Will make patient n.p.o. at midnight in the event he does require intervention tomorrow # History of DVTs -Patient reports he had 3 DVTs last year, they discussed taking him off of anticoagulation however he was very hesitant to do so given the unclear nature of his DVTs so he was continued on this but per patient a repeat ultrasound at 7 months showed no residual clots - Feel it is reasonable to hold Eliquis at this time in the event patient requires intervention # Recent bladder surgery/BPH - Bragg catheter in place, will ultimately need to follow-up with his outpatient physician on discharge #GERD -Continue PPI #Hx COPD -Continue home inhalers -Incentive spirometer #Hypertension -Continue patient's home medications #DVT ppx: SCDs Ashley Estevez MD Charges/Coding Visit Charges Inpatient E&M: 98596 Init Hosp L2
[2024-11-15] MEDS: Piperacil/Tazobactam 3.375 GM Q12 PREMIX IV (18:56)
--- NOTE | 2024-11-15 18:57 | ED.RN ---
vancomycin not here from pharmacy to [facility]'
--- NOTE | 2024-11-15 19:30 | NURSING ---
pt refused to have albarran cath changed. Pt stated i will leave it up to the [facility]. They had a hard time putting it in
[2024-11-15] MEDS: Albuterol 2.5 MG/3 ML VIAL.NEB. INHALATION (19:52)
[2024-11-15] MEDS: Budesonide Respules 0.5 MG/2 ML AMPUL.NEB. INHALATION (19:53)
[2024-11-15] MEDS: Vancomycin HCl 1,250 MG in 0.9% Normal Saline (250mL Bag) 250 ML 167 MG IV (19:57)
--- NOTE | 2024-11-15 20:07 | PCM.RX.CS ---
Consult Antibiotic Management Pharmacy has been consulted to manage selected antibiotic: Vancomycin Type of Intervention Type of Consult: New start Suspected Infection Suspected Infection: Sepsis Labs Labs: Sodium 140 mmol/L (133-145) 11/15/24 13:50 Potassium 3.3 mmol/L (3.3-5.1) 11/15/24 13:50 Chloride 104 mmol/L (98-108) 11/15/24 13:50 Carbon Dioxide 21.2 mmol/L (21.0-32.0) 11/15/24 13:50 Anion Gap 15 (5-15) 11/15/24 13:50 BUN 11 mg/dL (4-19) 11/15/24 13:50 Creatinine 0.80 mg/dL (0.70-1.20) 11/15/24 13:50 Est GFR (MDRD) Non-Af 91 (>60) 11/15/24 13:50 BUN/Creatinine Ratio 13.5 RATIO (10-20) 11/15/24 13:50 Glucose 106 mg/dL (70-99) H 11/15/24 13:50 Microbiology Microbiology: Microbiology 11/15/24 13:55 Fluid - Synovial (joint) Gram Stain - Final Dosing Weight Weight used for dosin kg Estimated Creatinine Clearance Estimated Creatinine Clearance: 71 Goal Trough Goal Trough: 15-20 mcg/mL Pharmacy Plan for Drug Dosing Pharmacy Plan for Drug Dosing: Pharmacy Service will continue to monitor and adjust dosing as required. Follow-Up Labs Follow-Up Labs: Trough: Vancomycin Date/Time Labs Ordered Labs to be done on [date and time ordered]: 11/17/24 @8664
--- NOTE | 2024-11-15 20:34 | CONS.ORTHO ---
HPI Consult Data Date of Consult: 11/15/24 HPI Narrative HPI Narrative: CARYL CURIEL, is a 79 M who presents with left knee pain and swelling. He states he has a several year history of left knee pain. Never this bad. He did have a bladder stone removed on as well as some type of prostate procedure . He states later that same day he developed a locked left knee and some left knee swelling. Knee pain was 9 out of 10. He was not able to ambulate. He has been using a wheelchair at his house until today. He was brought to the hospital today. He states his pain is currently 0 out of 10. Denies fever or chills. He also has a history of a previous right knee surgery and has been planning right knee replacement perhaps [facility] Medical History History of DVT (deep vein thrombosis) Enlarged prostate Wears hearing aid Wears glasses Wears partial dentures Depression Anxiety High cholesterol Hx of migraine headaches Leg cramps Vision problem Kidney stones Former smoker COPD (chronic obstructive pulmonary disease) Home Medications ?Medication ?Instructions ?Recorded ?Last Taken ?Type budesonide-formoterol HFA 160 2 puff inhalation BID 10/31/21 11/14/24 History mcg-4.5 mcg/actuation aerosol inhaler (Symbicort) cholecalciferol (vitamin D3) 50 50 mcg PO DAILY 10/31/21 11/14/24 History mcg (2,000 unit) capsule loratadine 10 mg tablet 10 mg PO DAILY 10/31/21 11/15/24 History vit A 12,500 unit-zinc 12.5 1 cap PO DAILY 10/31/21 11/15/24 History [id number]-jafzz-bilberry-herb #261 capsule (Lipotriad Vision Support) amlodipine 10 mg tablet 10 mg PO DAILY 03/25/23 11/15/24 History ibuprofen 200 mg tablet 200 mg PO Q6H PRN pain 03/25/23 Unknown History magnesium oxide 500 mg capsule 500 mg PO DAILY 03/25/23 11/15/24 History ubrogepant 100 mg tablet 100 mg PO ONCE #60 tabs 08/11/24 11/11/24 Rx apixaban 2.5 mg tablet 2.5 mg PO BID 11/15/24 11/15/24 History cephalexin 500 mg capsule 500 mg PO Q6 #40 CAPSULES 11/15/24 Unknown Rx esomeprazole magnesium 40 mg 40 mg PO BID 11/15/24 11/15/24 History capsule,delayed release finasteride 5 mg tablet 5 mg PO DAILY 11/15/24 11/15/24 History fluticasone propionate 50 2 spray intranasal DAILY 11/15/24 11/15/24 History mcg/actuation nasal spray,suspension (24 Hour Allergy Relief) polyvinyl alcohol-povidone 0.5 1 drp RIGHT EYE TID 11/15/24 11/15/24 History %-0.6 % eye drops (Artificial Tears (polyvinyl alcohol/povidone)) prednisone 20 mg tablet 40 mg (2 x 20 mg) PO DAILY 6 days 11/15/24 Unknown Rx #12 tabs psyllium 1 tbsp PO DAILY PRN constipation 11/15/24 Unknown History rosuvastatin 20 mg tablet (Crestor) 20 mg PO QODAY 11/15/24 11/15/24 History sodium chloride 0.65 % nasal spray 2 spray intranasal TID 11/15/24 11/15/24 History aerosol (Nasal [place] (sodium chloride)) tamsulosin 0.4 mg capsule (Flomax) 0.8 mg PO DAILY 11/15/24 11/14/24 History Allergy/AdvReac Type Severity Reaction Status Date / Time erythromycin base Allergy Anaphylaxis Verified 02/25/24 11:13 Family History Grandfather CVA (cerebral vascular accident) Father CVA (cerebral vascular accident) Mother Anemia Other Heart disease Surgical History S/P hernia repair Status post right knee replacement unable to obtain ( reportedly had right knee arthroscopy partial meniscectomy and had been offered right knee replacement that has not been done) Social History Smoking Status: Former smoker ROS ROS Narrative Denies any recent changes to eyes ears nose or throat heart or lungs. No bowel changes. He did have the bladder procedure prostate procedure and does have a Bragg catheter reportedly staying in until November 19 Vital Signs Vital Signs Vital Signs: 11/15/24 13:20 11/15/24 13:30 11/15/24 13:33 Temperature 97.6 F L 98.4 F Temperature Source Oral Oral Pulse Rate 105 H 91 Respiratory Rate 16 16 Respiratory Effort Respiratory Depth Respiratory Pattern Blood Pressure 143/83 H 139/81 H Blood Pressure Mean 103 100 Blood Pressure Source Blood Pressure Position Blood Pressure Location Pulse Ox 95 96 Oxygen Delivery Method Room Air Room Air Room Air 11/15/24 14:30 11/15/24 15:30 11/15/24 16:00 Temperature 98.2 F 97.7 F L 98.1 F Temperature Source Oral Oral Oral Pulse Rate 96 91 92 Respiratory Rate 17 15 16 Respiratory Effort Respiratory Depth Respiratory Pattern Blood Pressure 138/77 H 147/83 H 146/78 H Blood Pressure Mean 97 104 100 Blood Pressure Source Blood Pressure Position Blood Pressure Location Pulse Ox 95 95 94 Oxygen Delivery Method Room Air Room Air Room Air 11/15/24 17:00 11/15/24 18:00 11/15/24 18:50 Temperature 98.5 F 98.4 F 98.3 F Temperature Source Oral Oral Pulse Rate 92 102 H 77 Respiratory Rate 16 16 16 Respiratory Effort Respiratory Depth Respiratory Pattern Blood Pressure 154/86 H 149/86 H 160/89 H Blood Pressure Mean 108 107 112 Blood Pressure Source Blood Pressure Position Blood Pressure Location Pulse Ox 95 95 96 Oxygen Delivery Method Room Air Room Air 11/15/24 19:26 11/15/24 19:36 Temperature 98.8 F Temperature Source Oral Pulse Rate 99 Respiratory Rate 17 Respiratory Effort Normal Non-Labored Respiratory Depth Normal Respiratory Pattern Normal Blood Pressure 148/90 H Blood Pressure Mean 109 Blood Pressure Source Monitor Blood Pressure Position Semi-Fowlers Blood Pressure Location Right Arm Pulse Ox 95 Oxygen Delivery Method Room Air Room Air Weight Weight: 76.43 kg Body Mass Index (BMI) 26.4 Physical Exam Narrative Left knee has a moderate effusion. Left knee motion is 0 to 90 degrees. He is able to do a straight leg raise against gravity. He has mild joint line tenderness. Knee seems ligamentously stable. Right knee has no pain. Mild crepitance. No calf pain or swelling. Negative Homans' sign. Left knee had no warmth. X-rays of the left knee had been reviewed showing joint space narrowing medially. Chondrocalcinosis. No obvious acute fractures. 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 11/15/24 13:50 11/15/24 13:50 Labs: Laboratory Results - last 24 hr 11/15/24 13:37: Urine Color Yellow, Urine Clarity Sl. Cloudy, Urine pH 6.0, Ur Specific [place] 1.015, Urine Protein 500 H, Urine Glucose (UA) Normal, Urine Ketones 50 H, Urine Occult Blood 250 H, Urine Nitrite Negative, Urine Bilirubin Negative, Urine Urobilinogen Normal, Ur Leukocyte Esterase 100 H, Urine RBC > 100 SEEN, Urine WBC 25-50 SEEN, Ur Squamous Epith Cells 0 SEEN, Urine Bacteria 0 SEEN, Urine Mucus 2+ 11/15/24 13:50: WBC 9.8, RBC 4.66, Hgb 13.8, Hct 40.6, MCV 87.1, MCH 29.6, MCHC 34.0, RDW Std Deviation 41.3, RDW Coeff of [place] 13.1, Plt Count 145 L, MPV 12.3 H, Immature Gran % (Auto) 0.400, Neut % (Auto) 67.3, Lymph % (Auto) 20.2, [place] % (Auto) 11.6 H, Eos % (Auto) 0.2, Baso % (Auto) 0.3, Absolute Neuts (auto) 6.6, Absolute Lymphs (auto) 1.98, Nucleated RBC % 0, ESR 31 H, PT 14.2, INR 1.1, APTT 28.8, Sodium 140, Potassium 3.3, Chloride 104, Carbon Dioxide 21.2, Anion Gap 15, BUN 11, Creatinine 0.80, Estim Creat Clear Calc 71.15, Est GFR (MDRD) Non-Af 91, BUN/Creatinine Ratio 13.5, Glucose 106 H, Lactic Acid < 1.0, Uric Acid 4.2, Calcium 9.2, Total Bilirubin 0.66, AST 16, ALT 6, Alkaline Phosphatase 56, C-React Prot Ext Range 101.00 H, Total Protein 7.1, Albumin 3.9, Globulin 3.2, Albumin/Globulin Ratio 1.2 11/15/24 13:55: Fluid Source Cancelled, Fluid Color Cancelled, Fluid Appearance Cancelled, Fluid WBC Cancelled, Fluid RBC Cancelled, Fluid Tot Cell Count Cancelled, Fld Polynuclear WBCs # Cancelled, Fld Polynuclear WBCs % Cancelled, Fluid Mononuclear WBCs Cancelled, Fld Mononuclear WBCs % Cancelled, Fluid Neutrophils Cancelled, Fluid Lymphocytes Cancelled, Fluid Monocytes Cancelled, Fluid Plasma Cells Cancelled, Fluid Macrophages Cancelled, Fld Mesothelial Cells Cancelled, Fluid Other Cells Cancelled, Fluid Crystals NO CRYSTALS SEEN, Fluid Crystal Source SYNOVIAL, Fl Pathologist Comment Cancelled, Fluid Comment 2 Cancelled, Synovial Source KNEE, Synovial Color Yellow, Synovial Appearance Cloudy, Synovial Viscosity Sl. Viscous, Synovial WBC 10.5540 H, Synovial RBC 0, Synovial Tot Cell Ct 10.5520 H, Synov Polynuclear WBCs 9.099, Synov Mononuclear WBCs 1.078, Synovial Neutrophils 95 H, Synovial Lymphocytes 5, Synovial Polynuclear % 89.4, Synovial Mononuclear % 10.6, Synovial Path Comment May follow Micro: Microbiology 11/15/24 13:55 Fluid - Synovial (joint) Gram Stain - Final Rhythm Strip Rhythm Strip: Sinus Tach Rate: 105 Ectopy: None Imaging Radiology Impression Chest X-Ray 11/15/24 14:19 IMPRESSION: No focal consolidations. Reading Location: [facility] Knee X-Ray 11/15/24 16:40 IMPRESSION: No acute fracture or dislocation. Mild-moderate osteoarthritis. Moderate joint effusion and suprapatellar soft tissue swelling. Reading [facility] [place] & Plan Assessment/Plan (1) Effusion of knee joint, left: PLAN: His diagnosis and treatment options regarding his left knee pain, swelling, locked knee, history of pre-existing knee pain and arthritis discussed with him at length. He understands his symptoms could be related to arthritis, meniscus pathology, gout or pseudogout, possible infection. He understands his laboratory work is not completely diagnostic for infection although his Gram stain was reported as some bacteria. I explained there is a possibility of a false positive test. He would like to avoid surgery if possible. He understands the risk of progressive arthritis if his knee is infected and goes untreated. Procedure: He did consent to having the knee repeat aspirated. He tolerated that well. This was done under standard sterile technique. 18-gauge needle was used to obtain 55 cc of somewhat cloudy yellowish fluid. Sterile bandage was applied. Fluid will be sent for Gram stain, culture and sensitivity, cell count, crystal exam. We will await other fluid results from earlier today. He will continue off Eliquis. He will be n.p.o. after midnight. He understands if there is further concern for infection in the knee we may consider with arthroscopic irrigation debridement possibly tomorrow afternoon. He understands the risk of proceeding with surgery that may not be warranted. He also understands the risk of not performing the surgery if indeed there is a septic joint. He will continue on IV antibiotics. He may have an underlying UTI as well.
[2024-11-15] MEDS: Sodium Chloride 0.65% 1 SPRAY SPRAY.BTL 2 SPRAY NASAL (22:08)
[2024-11-15] MEDS: Pantoprazole Sodium 40 MG Tablet PO (22:09)
[2024-11-15] MEDS: Glycerin/Hypromellose/PEG400 15 ml Bottle 1 DRP RIGHT EYE (22:09)
[2024-11-15] MEDS: Senna/Docusate Sodium 1 Tablet 2 TABLET PO (22:09)
[2024-11-15 22:17] LABS: Pathologist Comment May follow
[2024-11-15 22:27] LABS: Synovial Fld Mononuclear WBC # 2.004 10^3/ul; Synovial Fld Mononuclear WBC % 10.7 %; Synovial Fld Polynuclear WBC # 16.785 10^3/uL; Synovial Fld Polynuclear WBC % 89.3 %
[2024-11-15 22:43] LABS: RBC /Synovial Fluid 0.004 10^6/uL (0)
[2024-11-15 22:44] LABS: AUTO B FLUID DILUENT BKGD CT WBC <0.1 RBC <0.01 (W<.1,R<.01); Appearance /Synovial Fluid Cloudy (CLEAR); CRYSTALS, BODY FLUID NO CRYSTALS SEEN; Color / Synovial Fluid Yellow (Pale Yellow); Source / Synovial Fluid LEFT KNEE; Source- Body Fluid SYNOVIAL; Viscosity / Synovial Fluid Sl. Viscous (HIGH)
[2024-11-15 22:45] LABS: Pathologist Review Will follow
[2024-11-15 23:23] LABS: Monocyte /Synovial Fluid 10 %; Neutrophil 89 % (0-25); Other Cell /Synovial Fluid 1 %
[2024-11-16] MEDS: 0.9% Normal Saline (250mL Bag) 250 ML 15 ML IV (00:31)
[2024-11-16] MEDS: 0.9% Saline Lock 10 ML Syringe IV (02:57)
[2024-11-16 02:58] VITALS: BP 118/69; PULSE 96; RESP 16; TEMP 36.6; O2SAT 93
[2024-11-16] MEDS: Sodium Chloride 0.65% 1 SPRAY SPRAY.BTL 2 SPRAY NASAL (06:17)
[2024-11-16] MEDS: Glycerin/Hypromellose/PEG400 15 ml Bottle 1 DRP RIGHT EYE (06:17)
[2024-11-16] MEDS: Piperacil/Tazobactam 3.375 GM in 0.9% Normal Saline (50mL MB+) 50 ML IV (06:18)
[2024-11-16 06:38] LABS: Absolute Lymphocyte Count 0.98 X10^3/uL (0.83-4.51); Absolute Neutrophil Count 4.7 X10^3/uL (2.0-7.7); Hematocrit 35.9 % (40-54); Hemoglobin 12.2 g/dL (13.0-16.5); Lymphocyte # 0.98 X10^3/ul (0.83-4.51); Mean Corpuscular Hgb 29.7 pg (27.0-32.0); Mean Corpuscular Volume 87.3 fL (80-94); Mean Platelet Vol. 12.2 fl (6.2-12.0); Monocyte# 0.42 X10^3/uL; Monocyte% 6.9 % (0-10); NRBC Flagged by Analyzer 0 % (0-5); Neutrophil # 4.71 X10^3/uL (2.7-7.7); Neutrophil % 76.9 % (47-70); Platelet Count 169 K/mm3 (150-450); RBC Distribution Width SD 41.8 fl (35.1-43.9); Red Blood Count 4.11 M/mm3 (4.6-6.2); White Blood Count 6.1 K/mm3 (4.4-11.0)
--- NOTE | 2024-11-16 07:13 | PN.HOSP_ITS ---
Reason for Visit Reason for Visit: Diagnoses Effusion, left knee (11/15/24) Pain in left knee (11/15/24) Personal history of other venous thrombosis and embolism (11/15/24) Subjective Subjective Left knee feeling better. Started to be painful starting this past Saturday. Objective Data Objective Data Vital Signs: Vital Signs Temp Pulse Resp BP Pulse Ox O2 Del Method 36.6 C 96 16 118/69 93 Room Air 11/16/24 02:58 11/16/24 02:58 11/16/24 02:58 11/16/24 02:58 11/16/24 02:58 11/16/24 03:03 Oxygen Delivery Method Room Air Weight: 76.43 kg Body Mass Index (BMI) 26.4 Intake & Output: Intake and Output for Last 24 Hours 11/14/24 11/15/24 11/16/24 23:59 23:59 23:59 Intake Total 1475 / 1475 600 / 600 Output Total 725 / 725 Balance 1475 / 1475 -125 / -125 Lab / Micro Data 11/16/24 05:57 11/16/24 05:57 Labs: Laboratory Results - last 24 hr 11/15/24 13:37: Urine Color Yellow, Urine Clarity Sl. Cloudy, Urine pH 6.0, Ur Specific [place] 1.015, Urine Protein 500 H, Urine Glucose (UA) Normal, Urine Ketones 50 H, Urine Occult Blood 250 H, Urine Nitrite Negative, Urine Bilirubin Negative, Urine Urobilinogen Normal, Ur Leukocyte Esterase 100 H, Urine RBC > 100 SEEN, Urine WBC 25-50 SEEN, Ur Squamous Epith Cells 0 SEEN, Urine Bacteria 0 SEEN, Urine Mucus 2+ 11/15/24 13:50: WBC 9.8, RBC 4.66, Hgb 13.8, Hct 40.6, MCV 87.1, MCH 29.6, MCHC 34.0, RDW Std Deviation 41.3, RDW Coeff of Ishmael 13.1, Plt Count 145 L, MPV 12.3 H , Immature Gran % (Auto) 0.400, Neut % (Auto) 67.3, Lymph % (Auto) 20.2, [place] % (Auto) 11.6 H, Eos % (Auto) 0.2, Baso % (Auto) 0.3, Absolute Neuts (auto) 6.6, Absolute Lymphs (auto) 1.98, Nucleated RBC % 0, ESR 31 H, PT 14.2, INR 1.1, APTT 28.8, Sodium 140, Potassium 3.3, Chloride 104, Carbon Dioxide 21.2, Anion Gap 15, BUN 11, Creatinine 0.80, Estim Creat Clear Calc 71.15, Est GFR (MDRD) Non-Af 91, BUN/Creatinine Ratio 13.5, Glucose 106 H, Lactic Acid < 1.0, Uric Acid 4.2, Calcium 9.2, Total Bilirubin 0.66, AST 16, ALT 6, Alkaline Phosphatase 56, C- React Prot Ext Range 101.00 H, Total Protein 7.1, Albumin 3.9, Globulin 3.2, Albumin/Globulin Ratio 1.2 11/15/24 13:55: Fluid Source Cancelled, Fluid Color Cancelled, Fluid Appearance Cancelled, Fluid WBC Cancelled, Fluid RBC Cancelled, Fluid Tot Cell Count Cancelled, Fld Polynuclear WBCs # Cancelled, Fld Polynuclear WBCs % Cancelled, Fluid Mononuclear WBCs Cancelled, Fld Mononuclear WBCs % Cancelled, Fluid Neutrophils Cancelled, Fluid Lymphocytes Cancelled, Fluid Monocytes Cancelled, Fluid Plasma Cells Cancelled, Fluid Macrophages Cancelled, Fld Mesothelial Cells Cancelled, Fluid Other Cells Cancelled, Fluid Crystals NO CRYSTALS SEEN, Fluid Crystal Source SYNOVIAL, Fl Pathologist Comment Cancelled, Fluid Comment 2 Cancelled, Synovial Source KNEE, Synovial Color Yellow, Synovial Appearance Cloudy, Synovial Viscosity Sl. Viscous, Synovial WBC 10.5540 H, Synovial RBC 0, Synovial Tot Cell Ct 10.5520 H, Synov Polynuclear WBCs 9.099, Synov Mononuclear WBCs 1.078, Synovial Neutrophils 95 H, Synovial Lymphocytes 5, Synovial Polynuclear % 89.4, Synovial Mononuclear % 10.6, Synovial Path Comment May follow 11/15/24 : Fluid Source Cancelled, Fluid Color Cancelled, Fluid Appearance Cancelled, Fluid WBC Cancelled, Fluid RBC Cancelled, Fluid Tot Cell Count Cancelled, Fld Polynuclear WBCs # Cancelled, Fld Polynuclear WBCs % Cancelled, Fluid Mononuclear WBCs Cancelled, Fld Mononuclear WBCs % Cancelled, Fluid Neutrophils Cancelled, Fluid Lymphocytes Cancelled, Fluid Monocytes Cancelled, Fluid Plasma Cells Cancelled, Fluid Macrophages Cancelled, Fld Mesothelial Cells Cancelled, Fluid Other Cells Cancelled, Fluid Crystals NO CRYSTALS SEEN, Fluid Crystal Source SYNOVIAL, Fl Crystal Path Review Will follow, Fl Pathologist Comment Cancelled, Fluid Comment 2 Cancelled, Synovial Source LEFT KNEE, Synovial Color Yellow, Synovial Appearance Cloudy, Synovial Viscosity Sl. Viscous, Synovial WBC 13.4310 H, Synovial RBC 0.004 H, Synovial Tot Cell Ct 13.4610 H, Synov Polynuclear WBCs 16.785, Synov Mononuclear WBCs 2.004, Synovial Neutrophils 89 H, Synovial Monocytes 10, Synovial Other Cells 1, Synovial Polynuclear % 89.3, Synovial Mononuclear % 10.7, Synovial Path Comment May follow 11/16/24 05:57: WBC 6.1, RBC 4.11 L, Hgb 12.2 L, Hct 35.9 L, MCV 87.3, MCH 29.7, MCHC 34.0, RDW Std Deviation 41.8, RDW Coeff of Ishmael 13.0, Plt Count 169, MPV 12.2 H, Immature Gran % (Auto) 0.200, Neut % (Auto) 76.9 H, Lymph % (Auto) 16.0 L, [place] % (Auto) 6.9, Eos % (Auto) 0.0, Baso % (Auto) 0.0, Absolute Neuts (auto) 4.7, Absolute Lymphs (auto) 0.98, Nucleated RBC % 0 Micro: Microbiology 11/15/24 13:55 Fluid - Synovial (joint) Gram Stain - Final Radiography Diagnostic Testing: Radiology Impression Chest X-Ray 11/15/24 14:19 IMPRESSION: No focal consolidations. Reading Location: [facility] Knee X-Ray 11/15/24 16:40 IMPRESSION: No acute fracture or dislocation. Mild-moderate osteoarthritis. Moderate joint effusion and suprapatellar soft tissue swelling. Reading Location: [facility] Rhythm Strip Rhythm Strip: Sinus Tach Rate: 105 Ectopy: None Physical Exam Const alert and no apparent distress HEENT head/scalp atraumatic and moist oral mucous membranes Resp normal respiratory effort, no retractions, no use of accessory muscles and clear to auscultation bilaterally Cardio regular rate, regular rhythm, S1 normal heart sound and S2 normal heart sound GI normal to inspection, nondistended, normoactive bowel sounds and soft to palpation Neuro Sensorium / Orientation: awake and alert Assessment & Plan Assessment/Plan (1) Effusion of knee joint, left: PLAN: Septic arthritis ruled out. Crystal negative. Arthrocentesis showed WBCs 13.4 Culture from first arthrocentesis showing gram positive rods. However, corrected result showed no organisms. Gram stains from both samples the gram stain was negative. DC home with prednisone burst. Ortho consulted. No plans for surgery. Plan to discharge home. PLAN: Plan Chronic conditions: * DVT: apixaban held * BPH: albarran. finasteride, tamsulosin * COPD: stable. VTE prophylaxis: SCDs.
[2024-11-16] MEDS: Albuterol 2.5 MG/3 ML VIAL.NEB. INHALATION (07:20)
[2024-11-16] MEDS: Budesonide Respules 0.5 MG/2 ML AMPUL.NEB. INHALATION (07:21)
[2024-11-16 07:23] VITALS: PULSE 100; RESP 17; O2SAT 92
[2024-11-16 07:39] LABS: Anion Gap 12 (5-15); BUN 14 mg/dL (4-19); BUN/Creat Ratio 20.6 RATIO (10-20); Calcium,Total 8.8 mg/dL (7.6-11.0); Carbon Dioxide 21.3 mmol/L (21.0-32.0); Chloride 107 mmol/L (98-108); Creatinine, Serum 0.69 mg/dL (0.70-1.20); EST Glomerular Filtration Rate 95 (>60); Estimated Creatinine Clearance 71.15 ml/min (50-250); Glucose 133 mg/dL (70-99); Potassium 3.6 mmol/L (3.3-5.1); Sodium Level 140 mmol/L (133-145)
[2024-11-16] MEDS: Vancomycin IV 1,000 MG/200 ML BAG 200 MG IV (09:04)
[2024-11-16] MEDS: Tamsulosin HCl 0.4 MG Capsule 0.8 MG PO (09:05)
[2024-11-16] MEDS: Finasteride 5 MG Tablet PO (09:05)
[2024-11-16] MEDS: amLODIPine 10 MG Tablet PO (09:05)
[2024-11-16 10:00] VITALS: BP 145/90; PULSE 102; RESP 16; TEMP 36.6; O2SAT 95
--- NOTE | 2024-11-16 11:46 | NURSING ---
[facility] OR charge updated that Dr. Iván Rosado called requesting we let warehouse engineer know he's cancelling OR, pt will not be going to OR today. primary RN also aware.
--- NOTE | 2024-11-16 12:02 | DS.PCM_ITS ---
Providers Date of Admission: 11/15/24 Primary Care Physician: [facility] Consultations 11/15/24 19:12 Consult: Orthopedics Routine Consulting Provider: Iván Rosado Reason for Consult: Concern for possible septic left knee, +gram stain EMERGENT Consult: No Notified: Yes Date Notified: 11/15/24 Time Notified: 18:52 Method of Notification: ED Physician Initiated 11/16/24 05:55 Consult: Infectious Disease AM (NON MEDS) Consulting Provider: Lavon Jaquez Reason for Consult: concern for septic left knee EMERGENT Consult: No Notified: Yes Date Notified: 11/16/24 Time Notified: 06:51 Method of Notification: Text Reason For Visit: CONCERN FOR POSSIBLE SEPTIC JOINT Diagnosis Discharge Diagnosis (1) Effusion of knee joint, left: Status: Acute Code(s): M25.462 - Effusion, left knee Plan: Septic arthritis ruled out. Crystal negative. Arthrocentesis showed WBCs 13.4 Culture from first arthrocentesis showing gram positive rods. However, corrected result showed no organisms. Gram stains from both samples the gram stain was negative. DC home with prednisone burst. Ortho consulted. No plans for surgery. Plan to discharge home. Plan Chronic conditions: * DVT: apixaban held * BPH: albarran. finasteride, tamsulosin * COPD: stable. VTE prophylaxis: SCDs. Medications at Discharge Home Medications budesonide-formoterol HFA 160 mcg-4.5 mcg/actuation aerosol inhaler (Symbicort) 2 puff inhalation BID 10/31/21 cholecalciferol (vitamin D3) 50 mcg (2,000 unit) capsule 50 mcg PO DAILY 10/31/21 loratadine 10 mg tablet 10 mg PO DAILY 10/31/21 vit A 12,500 unit-zinc 12.5 [id number]-hivrs-bilberry-herb #261 capsule (Lipotriad Vision Support) 1 cap PO DAILY 10/31/21 amlodipine 10 mg tablet 10 mg PO DAILY 03/25/23 magnesium oxide 500 mg capsule 500 mg PO .QOD HYPOMAGNESEMIA 03/25/23 ubrogepant 100 mg tablet 100 mg PO ONCE #60 tabs 08/11/24 apixaban 2.5 mg tablet 2.5 mg PO BID 11/15/24 cephalexin 500 mg capsule 500 mg PO Q6 #40 CAPSULES 11/15/24 esomeprazole magnesium 40 mg capsule,delayed release 40 mg PO DAILY GERD 11/15/24 finasteride 5 mg tablet 5 mg PO DAILY 11/15/24 fluticasone propionate 50 mcg/actuation nasal spray,suspension (24 Hour Allergy Relief) 2 spray intranasal DAILY 11/15/24 polyvinyl alcohol-povidone 0.5 %-0.6 % eye drops (Artificial Tears (polyvinyl alcohol/povidone)) 1 drp ophthalmic (eye) Q6H PRN dry eyes 11/15/24 prednisone 20 mg tablet 40 mg (2 x 20 mg) PO DAILY 6 days #12 tabs 11/15/24 psyllium 1 tbsp PO DAILY PRN constipation 11/15/24 rosuvastatin 20 mg tablet (Crestor) 20 mg PO QODAY 11/15/24 sodium chloride 0.65 % nasal spray aerosol (Nasal Dalton (sodium chloride)) 2 spray intranasal BID NASAL CONGESTION 11/15/24 tamsulosin 0.4 mg capsule (Flomax) 0.8 mg PO DAILY 11/15/24 acetaminophen 650 mg tablet,extended release 650 mg PO Q6H PRN PRN PAIN 11/16/24 Hospital Course Procedures - (left knee arthrocentesis x2. ) Summary of Care Provided Hospital Course: Patient presents with left knee pain that began the Saturday prior to admission. Patient underwent an arthrocentesis that the initial Gram stain showed gram- positive cocci. Orthopedics was consulted patient was brought in. Orthopedics called later on that night and performed another arthrocentesis. Did have some leukocytosis but Gram stain was negative. After further review of the initial Gram stain that the gram-positive cocci was retracted. The patient is otherwise doing well. Denies his knee feeling warm and he had no other constitutional symptoms that suggest septic arthritis. His crystals were negative so that is not a crystal arthropathy. Patient be discharged with a prednisone burst. Patient advised to follow-up with orthopedics if he gets worse. Weight / BMI Weight Weight: 76.43 kg Body Mass Index (BMI) 26.4 ABG / Lab / Microbiology Data 11/16/24 05:57 11/16/24 05:57 Laboratory: Laboratory Results - last 24 hr 11/15/24 13:37: Urine Color Yellow, Urine Clarity Sl. Cloudy, Urine pH 6.0, Ur Specific [place] 1.015, Urine Protein 500 H, Urine Glucose (UA) Normal, Urine Ketones 50 H, Urine Occult Blood 250 H, Urine Nitrite Negative, Urine Bilirubin Negative, Urine Urobilinogen Normal, Ur Leukocyte Esterase 100 H, Urine RBC > 100 SEEN, Urine WBC 25-50 SEEN, Ur Squamous Epith Cells 0 SEEN, Urine Bacteria 0 SEEN, Urine Mucus 2+ 11/15/24 13:50: WBC 9.8, RBC 4.66, Hgb 13.8, Hct 40.6, MCV 87.1, MCH 29.6, MCHC 34.0, RDW Std Deviation 41.3, RDW Coeff of Ishmael 13.1, Plt Count 145 L, MPV 12.3 H , Immature Gran % (Auto) 0.400, Neut % (Auto) 67.3, Lymph % (Auto) 20.2, [place] % (Auto) 11.6 H, Eos % (Auto) 0.2, Baso % (Auto) 0.3, Absolute Neuts (auto) 6.6, Absolute Lymphs (auto) 1.98, Nucleated RBC % 0, ESR 31 H, PT 14.2, INR 1.1, APTT 28.8, Sodium 140, Potassium 3.3, Chloride 104, Carbon Dioxide 21.2, Anion Gap 15, BUN 11, Creatinine 0.80, Estim Creat Clear Calc 71.15, Est GFR (MDRD) Non-Af 91, BUN/Creatinine Ratio 13.5, Glucose 106 H, Lactic Acid < 1.0, Uric Acid 4.2, Calcium 9.2, Total Bilirubin 0.66, AST 16, ALT 6, Alkaline Phosphatase 56, C- React Prot Ext Range 101.00 H, Total Protein 7.1, Albumin 3.9, Globulin 3.2, Albumin/Globulin Ratio 1.2 11/15/24 13:55: Fluid Source Cancelled, Fluid Color Cancelled, Fluid Appearance Cancelled, Fluid WBC Cancelled, Fluid RBC Cancelled, Fluid Tot Cell Count Cancelled, Fld Polynuclear WBCs # Cancelled, Fld Polynuclear WBCs % Cancelled, Fluid Mononuclear WBCs Cancelled, Fld Mononuclear WBCs % Cancelled, Fluid Neutrophils Cancelled, Fluid Lymphocytes Cancelled, Fluid Monocytes Cancelled, Fluid Plasma Cells Cancelled, Fluid Macrophages Cancelled, Fld Mesothelial Cells Cancelled, Fluid Other Cells Cancelled, Fluid Crystals NO CRYSTALS SEEN, Fluid Crystal Source SYNOVIAL, Fl Pathologist Comment Cancelled, Fluid Comment 2 Cancelled, Synovial Source KNEE, Synovial Color Yellow, Synovial Appearance Cloudy, Synovial Viscosity Sl. Viscous, Synovial WBC 10.5540 H, Synovial RBC 0, Synovial Tot Cell Ct 10.5520 H, Synov Polynuclear WBCs 9.099, Synov Mononuclear WBCs 1.078, Synovial Neutrophils 95 H, Synovial Lymphocytes 5, Synovial Polynuclear % 89.4, Synovial Mononuclear % 10.6, Synovial Path Comment May follow 11/15/24 : Fluid Source Cancelled, Fluid Color Cancelled, Fluid Appearance Cancelled, Fluid WBC Cancelled, Fluid RBC Cancelled, Fluid Tot Cell Count Cancelled, Fld Polynuclear WBCs # Cancelled, Fld Polynuclear WBCs % Cancelled, Fluid Mononuclear WBCs Cancelled, Fld Mononuclear WBCs % Cancelled, Fluid Neutrophils Cancelled, Fluid Lymphocytes Cancelled, Fluid Monocytes Cancelled, Fluid Plasma Cells Cancelled, Fluid Macrophages Cancelled, Fld Mesothelial Cells Cancelled, Fluid Other Cells Cancelled, Fluid Crystals NO CRYSTALS SEEN, Fluid Crystal Source SYNOVIAL, Fl Crystal Path Review Will follow, Fl Pathologist Comment Cancelled, Fluid Comment 2 Cancelled, Synovial Source LEFT KNEE, Synovial Color Yellow, Synovial Appearance Cloudy, Synovial Viscosity Sl. Viscous, Synovial WBC 13.4310 H, Synovial RBC 0.004 H, Synovial Tot Cell Ct 13.4610 H, Synov Polynuclear WBCs 16.785, Synov Mononuclear WBCs 2.004, Synovial Neutrophils 89 H, Synovial Monocytes 10, Synovial Other Cells 1, Synovial Polynuclear % 89.3, Synovial Mononuclear % 10.7, Synovial Path Comment May follow 11/16/24 05:57: WBC 6.1, RBC 4.11 L, Hgb 12.2 L, Hct 35.9 L, MCV 87.3, MCH 29.7, MCHC 34.0, RDW Std Deviation 41.8, RDW Coeff of Ishmael 13.0, Plt Count 169, MPV 12.2 H, Immature Gran % (Auto) 0.200, Neut % (Auto) 76.9 H, Lymph % (Auto) 16.0 L, [place] % (Auto) 6.9, Eos % (Auto) 0.0, Baso % (Auto) 0.0, Absolute Neuts (auto) 4.7, Absolute Lymphs (auto) 0.98, Nucleated RBC % 0, Sodium 140, Potassium 3.6, Chloride 107, Carbon Dioxide 21.3, Anion Gap 12, BUN 14, Creatinine 0.69 L, Estim Creat Clear Calc 71.15, Est GFR (MDRD) Non-Af 95, BUN/Creatinine Ratio 20.6 H, Glucose 133 H, Calcium 8.8, C-React Prot Ext Range 121.00 H Microbiology: Microbiology 11/15/24 Unknown Fluid - Synovial (joint) Gram Stain - Final 11/15/24 Unknown Fluid - Synovial (joint) Body Fluid Culture - Preliminary No growth-Final to follow 11/15/24 13:55 Fluid - Synovial (joint) Gram Stain - Final 11/15/24 13:55 Fluid - Synovial (joint) Body Fluid Culture - Preliminary No growth-Final to follow Radiography Diagnostic Testing: Radiology Impression Chest X-Ray 11/15/24 14:19 IMPRESSION: No focal consolidations. Reading Location: [facility] Knee X-Ray 11/15/24 16:40 IMPRESSION: No acute fracture or dislocation. Mild-moderate osteoarthritis. Moderate joint effusion and suprapatellar soft tissue swelling. Reading [facility] D/ Instructions Discharge Diet: No restrictions DC O2, CPAP, BIPAP Needs Home O2 Discharge instructions: No Meaningful Use Info Meaningful Use Meaningful Use Diagnoses (Choose all that apply): None applicable Ischemic Stroke Statin Dosing Therapy Reference: STATIN DOSE THERAPY REFERENCE: * Patients > 75 years receive moderate or high dose statin therapy. * Patients 75 years or YOUNGER should receive HIGH intensity statin dose unless contraindicated. You will be required to document reason for non-treatment if statin daily dose does not meet guidelines. HIGH DOSE STATIN THERAPY DAILY Atorvastatin > than or = to 40 mg Rosuvastatin > than or = to 20 mg Amlodipine + Atorvastatin > than or = to 2.5/40 mg Ezetimibe + Simvastatin 10/80 mg Simvastatin 80mg Discharge Plan Admission Admit Date/Time: 11/15/24 18:44 Primary Reason for Your Visit: left knee pain and effusion Attending Provider: Rashard Neff Primary Care Provider: [facility] Consulting Providers: Iván Rosado; Lavon Jaquez; Ashley Estevez Instructions Additional Instructions / Restrictions: You had swelling in your knee. Initial concern was that it was infectious but the workup did not reveal any source of infection. He will be on prednisone to help with the inflammation though that may be due to arthritis. If any does get worse or start evolving fever or chills, notify your physician or return to the emergency room for evaluation. Discharge Orders/Prescriptions Prescriptions: New prednisone 20 mg tablet 40 mg PO DAILY 6 Days Qty: 12 0RF cephalexin 500 mg capsule 500 mg PO Q6 Qty: 40 0RF Continued cholecalciferol (vitamin D3) 50 mcg (2,000 unit) capsule 50 mcg PO DAILY loratadine 10 mg tablet 10 mg PO DAILY Lipotriad Vision Support 12,500 unit- 12.5 mg capsule 1 cap PO DAILY budesonide-formoterol [Symbicort] 160-4.5 mcg/actuation HFA aerosol inhaler 2 puff inhalation BID amlodipine 10 mg tablet 10 mg PO DAILY magnesium oxide 500 mg capsule 500 mg PO .QOD apixaban 2.5 mg tablet 2.5 mg PO BID finasteride 5 mg tablet 5 mg PO DAILY tamsulosin [Flomax] 0.4 mg capsule 0.8 mg PO DAILY fluticasone propionate [24 Hour Allergy Relief] 50 mcg/actuation spray,suspension 2 spray intranasal DAILY Rx Instructions: administer into each nostril rosuvastatin [Crestor] 20 mg tablet 20 mg PO QODAY psyllium Powder 1 tbsp PO DAILY PRN (Reason: constipation) Rx Instructions: mix into at least 8 oz of water or juice before administering Artificial Tears(pvalch-povid) 0.5-0.6 % drops 1 drp ophthalmic (eye) Q6H PRN (Reason: dry eyes) esomeprazole magnesium 40 mg capsule,delayed release(DR/EC) 40 mg PO DAILY Patient Comments: TAKES 1 DAILY, PLUS ADDITIONAL ESOMEPRAZOLE 40 MG BEFORE DINNER IF HAVING REFLUX Nasal Dalton (sodium chloride) 0.65 % aerosol,spray 2 spray intranasal BID acetaminophen 650 mg tablet extended release 650 mg PO Q6H PRN PRN (Reason: PAIN) ubrogepant 100 mg tablet 100 mg PO ONCE Qty: 60 1RF Rx Instructions: May repeat once in >=2 hours after first dose if needed. Maximum dose is 200 mg in 24 hours. Referrals / Follow Up: Iván Rosado MD [Med Staff - Active Staff] - (Saturday in [place], or in [place], or a day in between with one of the physician assistants in the office in [place]) [facility] [Primary Care Provider] - Keep Lenny appointment Disposition Disposition (needs filled in before D/C Order can be placed): Home, Self Care Charges/Coding Visit Charges Inpatient E&M: 12219 Disch Hosp
--- NOTE | 2024-11-16 12:24 | CASEMGMT ---
CIARRA LINDO Assessment: Face to Face with pt for initial transition planning/care coordination assessment. CIARRA LINDO introduced self and role at [facility], pt voices understanding and consents to assessment. Pt is A&O x4 and answers all questions appropriately at this time. Pt sitting up in chair in no distress with on phone. Pt completed assessment with on speaker. Care providers, pharmacy, and demographics verified/updated. Admitting Dx: concern for possible septic joint Strata Score: 1 PCP:Josh at [facility] Specialists:Pt states any specialists he sees is through the [facility]. Preferred Pharmacy: [facility] Insurance: [facility] benefit Prescription Benefit: Pt gets his medications through the [facility]. LNOK: Nathalie Collado, ; Naila Collado, dtr Living Arrangements: Pt lives with in a single story home with 3 steps to enter with a rail. Pt reports that he is I in ADLs and denies concerns at home. Pt assists in IADLs. Transportation: Pt drives self and denies concerns with transportation. DME:Pt has DME such as a walker, w/c but does not typically use. HHC/SNF: Denies hx of Pt states no concerns with going home at time of dc. No PT recommended. Pt states no further concerns/needs. CM to follow. Advised pt to ask CM if any further questions/concerns/needs arise, voices understanding. Pt Goal: Home Plan: Home Himanshu LAFLEUR CM
[2024-11-16 13:45] VITALS: BP 137/76; PULSE 110; RESP 16; TEMP 36.8; O2SAT 94
--- NOTE | 2024-11-16 16:14 | CHAPLAIN ---
Type of Pastoral Visit ___ Initial Visit ___ Follow-up Visit ___ On-call Visit ___ General Patient Visit ___ Spiritual Assessment ___ Family Conference ___ Bereavement ___ Rapid Response ___ Code Blue ___ Other (describe below) Pastoral Care Referral From ___ Patient ___ Family ___ Nurse ___ Physician ___ Lighting Engineer ___ Gamer ___ Other (describe below) Sacrament/Intervention ___ Active listening ___ Anointing ___ Rastafari ___ Bereavement ___ Communion ___ Richa exploration ___ ___ Life review ___ Prayer ___ Reconciliation ___ Sacrament of Sick ___ Supportive presence ___ Wedding ___ Other (describe below) Pastoral Comments patient was being discharged and this medical appointment clerk was not able to meet him
== END 2024-11-16 13:44 | disposition home or self-care (01) | DRG 565 ==
LOC: ED 18:31 → MS3 18:50
PROVIDERS: Orthopaedic Surgery; Admitting Provider Internal Medicine; Emergency Provider Emergency Medicine
DX: M25.462 Effusion, left knee (principal); N39.0 Urinary tract infection, site not specified; E78.00 Pure hypercholesterolemia, unspecified; J44.9 Chronic obstructive pulmonary disease, unspecified; I10 Essential (primary) hypertension; K21.9 Gastro-esophageal reflux disease without esophagitis; Z87.891 Personal history of nicotine dependence; Z86.718 Personal history of other venous thrombosis and embolism; Z79.51 Long term (current) use of inhaled steroids; Z79.01 Long term (current) use of anticoagulants; N40.0 Benign prostatic hyperplasia without lower urinary tract symptoms
CPT/HCPCS: 71045; 73560; 80048; 80053; 81001; 83605; 84550; 85025; 85610; 85652; 85730; 86140; 87040; 87070; 87075; 87086; 87205; 89050; 89051; 89060; 93005; 94640; 94668; 97161; 99285; A4216